=== PATIENT | female | born 1945 | race Caucasian/White ===

== ENCOUNTER 2019-11-13 12:46 | Emergency (ER) | payer MEDICARE, BC, SELFPAY ==
[2019-11-13 12:48] VITALS: BP 163/88; PULSE 74; RESP 18; TEMP 36.7; O2SAT 96; BMI 35.4
--- NOTE | 2019-11-13 12:56 | XR_ITS ---
WS: [id number] Left arm and humerus, 2 views, 11/13/2019 Clinical Data: fall pain Comparison: None. Findings: There is a comminuted fracture of the neck of the left humerus. The shaft of the humerus is medially displaced. The humeral head is approximately within the glenoid fossa. The AC joint is normal. The ad jacent soft tissues show swelling at the fracture site. There is a monitor lead on the shoulder. XR/[place] [id number] Impression: Comminuted fracture involving the left humeral head and junction of the humeral head and humeral shaft.
--- NOTE | 2019-11-13 12:57 | W.ED.FALL ---
HPI - Fall General: Chief Complaint: Fall Stated Complaint: L SHOULDER DISLOCATION/FRACTURE Time Seen by Provider: 11/13/19 12:55 History of Present Illness: HPI Narrative: 74-year-old female comes in after a fall via EMS. Complaining of severe R arm pain. No head injury, no LOC. She denies any other injuries. She slipped and fell at a store. She is having spasm-like pain in the left upper arm. MD complaint: fall Onset (ago): minute(s) Fall from: standing Fall witnessed: yes, by bystander Place fall occurred: other (Local business) Loss of consciousness: None Prolonged down time: no Symptoms prior to fall: none Context: tripped/slipped Location of injury - extremities: Left: arm Severity: severe Quality: sharp Associated symptoms-after fall: Denies abdominal pain, chest pain, confusion, difficulty walking, headache(s), hematuria, lightheadedness, neck pain, numbness, short of breath, vertigo or weakness Review of Systems Const: Denies: fever(s), chills, body aches, change in appetite, fatigue or malaise ENMT: Denies: throat pain, ear or mastoid pain, nasal discharge or nasal congestion Card: Denies: chest pain or lightheadedness Resp: Denies: dyspnea, productive cough or non-productive cough GI: Denies: abdominal pain : Denies: hematuria Musc: Denies: neck pain Skin/Breast: Denies: rash or pruritus Neuro: Denies: headache(s), difficulty walking, vertigo or confusion Physical Exam Const: COMMON NORMALS: no acute distress GENERAL APPEARANCE: cooperative and comfortable ORIENTATION/CONSCIOUSNESS: Yes awake, Yes oriented to person, Yes oriented to place and Yes oriented to time HENMT: COMMON NORMALS: normocephalic, atraumatic and hearing grossly normal bilaterally HEAD & SCALP: normocephalic and atraumatic Eye: COMMON NORMALS: Equal, round and reactive pupils present, EOMs intact bilaterally, conjunctivae normal and no scleral icterus CONJUNCTIVA: Yes conjunctivae normal PUPIL: Yes Equal, round and reactive pupils present Neck/C-Spine: COMMON NORMALS: full ROM, no lymphadenopathy, supple and no JVD Resp: COMMON NORMALS: normal respiratory effort, No retractions, No use of accessory muscles and clear to auscultation bilaterally AUSCULTATION: clear to auscultation bilaterally Cardio: COMMON NORMALS: no JVD, regular rate, regular rhythm and No murmurs present (Cardio) RATE: regular rate RHYTHM: regular rhythm GI: COMMON NORMALS: Soft to palpation and No hepatosplenomegaly present AUSCULTATION: Yes normoactive bowel sounds PALPATION: Yes Soft to palpation, No Tenderness to palpation present (GI), No Guarding due to palpation present (GI) and Yes No hepatosplenomegaly present Extremity: NARRATIVE EXTREMITY EXAM: Obvious deformity and severe pain of the left upper humerus proximal. Neurovascularly intact distally. X-ray confirms clinical suspicion of fracture Neuro: SENSORIUM/ORIENTATION: Yes oriented to person, Yes oriented to place and Yes oriented to time Skin: COMMON NORMALS: no rashes or lesions noted GENERAL SKIN EXAM: no rashes or lesions noted Course Vital Signs: Vital signs: Vital Signs Temperature 98.0 F 11/13/19 12:48 Pulse Rate 70 11/13/19 13:45 Respiratory Rate 18 11/13/19 13:45 Blood Pressure 144/80 11/13/19 13:45 Pulse Oximetry 97 11/13/19 13:45 MDM - Fall MDM Narrative: Medical decision making narrative: X-ray confirms proximal humerus fracture with displacement. We will go ahead and discharge patient home with sling and pain medications referral to Ortho and follow-up. Lab Data: Labs: Lab Results 11/13/19 11/13/19 Range/Units 12:29 12:29 WBC 6.6 (4.0-10.0) 10^3/ uL RBC 4.91 (4.1-5.3) 10^6/u L Hgb 14.9 (11.5-15.3) g/dL Hct 45.3 (37.0-47.0) % MCV 92.3 (81-99) fL MCH 30.3 (28.0-34.0) pg MCHC 32.9 (30.0-36.0) g/dL RDW 13.0 (12.1-15.1) % Plt Count 224 (130-400) 10^3/c mm MPV 10.0 (7.4-10.4) fL Neut % (Auto) 47.8 % Lymph % (Auto) 39.5 % [place] % (Auto) 10.9 % Eos % (Auto) 0.6 % Baso % (Auto) 0.9 % Neut # (Auto) 3.15 (1.8-7.7) 10^3/u L Lymph # (Auto) 2.6 (0.8-4.8) 10^3/u L [place] # (Auto) 0.7 (0.2-0.9) 10^3/u L Eos # (Auto) 0.0 (0.0-0.8) 10^3/u L Baso # (Auto) 0.1 (0.0-0.1) 10^3/u L Nucleated RBC % (a uto) 0 % Nucleated RBCs # 0.0 /100WBC Sodium 130 L (136-145) mmol/L Potassium 3.9 (3.5-5.1) mmol/L Chloride 95 L (98-107) mmol/L Carbon Dioxide 22 (22-29) mmol/L Anion Gap 16.9 (5-19) BUN 10 (8-23) mg/dL Creatinine 0.6 (0.5-0.9) mg/dL GFR Calculation Not Reportable Glucose 94 (65-115) mg/dL Calculated Osmolal ity 269 L (285-295) mOsm/k g Calcium 8.7 (8.5-10.5) mg/dL Total Bilirubin 0.7 (0.15-1.2) mg/dL AST 27 (0-32) U/L ALT 17 (0-33) U/L Alkaline Phosphata se 86 (35-105) IU/L Total Protein 7.0 (6.6-8.7) g/dL Albumin 4.5 (3.5-5.2) g/dL Globulin 2.5 (1.3-4.6) g/dL Discharge Plan Discharge Patient Disposition: Home Clinical Impression: Fracture of proximal end of left humerus Condition: Stable Prescriptions: New hydrocodone-acetaminophen 5-325 mg tablet 1 tab PO Q6H PRN (Reason: pain) Qty: 20 RF: 0 Discharge Orders: Discharge Order (Routine); Ordered 11/13/19 Ordered By: Michael Campbell Referrals: Mino Richter MD [Primary Care Provider] - Discharge Diet: Usual diet Discharge Activity: Limit activity as instructed Activity Restrictions/Additional Instructions: Case management will call with an appointment for orthopedics. Discharge Date/Time: 11/13/19 13:47 Coding Level of Care Code ED Clinical Business Manager for Chg Fwd Exam Comprehensive
[2019-11-13 13:05] VITALS: BP 163/88; PULSE 75; RESP 16; O2SAT 94
--- NOTE | 2019-11-13 13:05 | PC.NURSE ---
XR performed at bedside.
[2019-11-13 13:08] VITALS: O2SAT 96
[2019-11-13 13:31] LABS: Basophils # 0.1 10^3/uL (0.0-0.1); Basophils % 0.9 %; Eosinophils % 0.6 %; Hematocrit 45.3 % (37.0-47.0); Hemoglobin 14.9 g/dL (11.5-15.3); Lymphocytes # 2.6 10^3/uL (0.8-4.8); Lymphocytes % 39.5 %; Mean Corpuscular HGB Conc 32.9 g/dL (30.0-36.0); Mean Corpuscular Hemoglobin 30.3 pg (28.0-34.0); Mean Corpuscular Volume 92.3 fL (81-99); Monocytes # 0.7 10^3/uL (0.2-0.9); Monocytes % 10.9 %; Neutrophils # 3.15 10^3/uL (1.8-7.7); Neutrophils % 47.8 %; Nucleated Red Blood Cells % 0 %; Platelet Count 224 10^3/cmm (130-400); Red Blood Count 4.91 10^6/uL (4.1-5.3); White Blood Count 6.6 10^3/uL (4.0-10.0)
[2019-11-13 13:45] VITALS: BP 144/80; PULSE 70; RESP 18; O2SAT 97
[2019-11-13 13:53] LABS: Alanine Aminotransferase 17 U/L (0-33); Albumin Level 4.5 g/dL (3.5-5.2); Alkaline Phosphatase 86 IU/L (35-105); Anion Gap 16.9 (5-19); Aspartate Amino Transferase 27 U/L (0-32); Blood Urea Nitrogen 10 mg/dL (8-23); Calcium 8.7 mg/dL (8.5-10.5); Carbon Dioxide 22 mmol/L (22-29); Chloride 95 mmol/L (98-107); Globulin 2.5 g/dL (1.3-4.6); Glucose 94 mg/dL (65-115); Osmolality Calculated 269 mOsm/kg (285-295); Potassium 3.9 mmol/L (3.5-5.1); Sodium 130 mmol/L (136-145); Total Bilirubin 0.7 mg/dL (0.15-1.2)
--- NOTE | 2019-11-13 15:35 | DCPLANNER ---
clothing manager had message to schedule a follow up appointment for patient with ortho. clothing manager called the ortho clinic, spoke with Tanya, gave clinic patients information. clothing manager was told that patients information would be printed and reviewed. Clinic will call patient with appointment information.
--- NOTE | 2019-11-16 09:02 | DCPLANNER ---
quality systems manager had message to schedule a follow up appointment for patient with ortho. quality systems manager called the ortho clinic, spoke with Tanya, gave clinic patients information. quality systems manager was told that patients information would be printed and reviewed. Clinic will call patient with appointment information.
--- NOTE | 2019-11-17 07:48 | DCPLANNER ---
Patient had a follow up appointment scheduled for 11.16.19 with ortho - pt attended appointment.
== END 2019-11-13 13:47 | disposition home or self-care (01) ==
PROVIDERS: Emergency Provider Family Medicine; PCP Family Medicine
DX: S42.202A Unspecified fracture of upper end of left humerus, initial encounter for closed fracture (principal); W01.0XXA Fall on same level from slipping, tripping and stumbling without subsequent striking against object, initial encounter; Y92.512 Supermarket, store or market as the place of occurrence of the external cause
CPT/HCPCS: 12345; 73060; 80053; 85025; 99282; 99283

== ENCOUNTER → 2019-11-16 15:02 | Outpatient (BNVA) | payer MEDICARE, BC, SELFPAY | PROVIDERS: PCP Family Medicine; Visit Provider Orthopaedic Surgery | DX: Z11.59 Encounter for screening for other viral diseases (principal) | CPT/HCPCS: 87635 ==

== ENCOUNTER 2019-11-18 06:35 | Day surgery (SDC) | payer MEDICARE, BC, SELFPAY ==
[2019-11-17 13:03] VITALS: BMI 35.4
[2019-11-18] VITALS (9 sets, daily range): BP systolic 122–184; BP diastolic 62–98; PULSE 61–94; RESP 14–20; TEMP 36.1–36.8; O2SAT 94–99; BMI 35.4
--- NOTE | 2019-11-18 | XR_ITS ---
WS: [id number] C-ARM RADIOGRAPHS LEFT SHOULDER; 3 IMAGES HISTORY: OR PICS COMPARISON: 11/13/2019 Intraoperative plate and screw fixation proximal humeral fracture. Fracture now in good position and alignment. XR/XR shoulder LT min 2V* [id number] IMPRESSION: Intraoperative imaging during plate and screw fixation proximal LEFT humerus.
--- NOTE | 2019-11-18 | SCC_ITS ---
Procedure Done: Open reduction and internal fixation left proximal humerus 49.5 seconds of fluoroscopic guidance, for a cumulative dose of 3.99 mGy, was provided to Dr. Mistry by the radiology department. C-arm images of the LEFT shoulder were saved for the patient's permanent record. [facility]
--- NOTE | 2019-11-18 07:22 | ECG_ITS ---
[facility] Test Date: 2019-11-18 Pat Name: Lauren Fisher Department: Room: Gender: Female Stonemason: : 1945 Requested By: Yesy Westfall Order Number: [id number] Yady MD: Reema Leach M.D. Measurements Intervals Faber Rate: 72 P: 40 RI: 226 QRS: 8 QRSD: 102 T: 9 QT: 385 QTc: 423 Interpretive Statements SINUS RHYTHM WITH FIRST DEGREE AV BLOCK ANTERIOR MYOCARDIAL INFARCTION [40+ ms Q WAVE AND/OR ST/T ABNORMALITY IN V3/V4], PROBABLY OLD INFERIOR MYOCARDIAL INFARCTION [40+ ms Q WAVE AND/OR ST/T ABNORMALITY IN II/aVF], PROBABLY OLD Compared to ECG 03/21/2018 18:46:35 First degree AV block now present Myocardial infarct finding still present Electronically Signed On 11-18-2019 18:37:31 CDT by Reema Leach M.D. [id number]
[2019-11-18] MEDS: sodium chloride 0.9% 1,000 ML 30 ML IV (07:24)
--- NOTE | 2019-11-18 07:36 | ANES.PREANE2 ---
Pre-Anesthetic Assessment Pre-Anesthetic Assessment: Height/Weight: Height 1.6 m Weight 90.718 kg Temp Pulse Resp BP Pulse Ox 98.3 F 80 18 184/98 95 11/18/19 07:06 11/18/19 07:06 11/18/19 07:06 11/18/19 07:06 11/18/19 07:06 Preop Diagnosis: Left proximal humerus fracture Proposed Procedure: Operation Date: 11/18/19 08:35 Proposed Procedures p ORIF Proximal Humerus 46115 S42.202A(Left) - Ryan Mistry MD Familial anesthetic complications: PONV - had scop patch last time Was Beta Johnny taken within 24 hours: Yes Last intake: Intake NPO > 8 hrs Last Liquid Date 11/18/19 Last Liquid Time 20:00 Last Solid Date 11/17/19 Last Solid Time 20:00 Social: Social History: No alcohol and No tobacco Exam: Pre-Anes Outpt Exam: alert, oriented x 3, clear to auscultation bilaterally and regular rate & rhythm Airway: Cervical ROM: WNL MP: 3 Dentition: Other (missing, poor dentition) CV/HEM: CV/HEM: CAD (2 stents 2006) and HTN Metabolic: Metabolic: Hyperlipidemia and Thyroid Anesthetic Plan: ASA status: 2 Anesthesia: General and Regional (specify below) Risk of > 500 ml blood loss (7ml/kg in children): No Meds/Allergies Current Medications: Current Medications Generic Name Dose Route Start Last Admin Trade Name Freq PRN Reason Stop Dose Admin Sodium Chloride 1,000 mls @ 30 ml s/hr 11/18/19 07:00 11/18/19 07:24 Sodium Chloride 0.9% IV 11/19/19 06:59 30 mls/hr .Q24H ANISH Administration Data Anesthesia Cardiac Studies: No Data to Display
[2019-11-18] MEDS: scopolamine 1.5 Patch 1 PATCH TRANSDERMA (07:42)
--- NOTE | 2019-11-18 07:56 | ANES.PROC ---
Anesthesia Procedures Procedure/Date: 11/18/19 Nerve Block ^: Nerve Block 1: Main Anesthesia: general anesthesia Time Out Performed: Yes Consent: requested by attending/covering physician, from patient, risks and benefits reviewed and patient agrees to proceed Nerve block location: interscalene (L) Anesthesia monitors applied: pulse oximetry, EKG, BP cuff and oxygen Anesthetic Used: ropivicaine 0.5% and with decadron (4 mg) Amount of anesthesia used (mL): 25 Ultrasound used to: recognize landmarks and visualize and ID interscalene groove Nerve Stimulator Used?: No Interscalene/Femoral BLK: 2 stimuplex 22 g needle used for position and inplane approach, visualize local anesthetic spread and no vascular puncture identified Injection: neg aspiration of heme and paresthesia +/- (-) Patient Tolerated Procedure: well Complications: none
[2019-11-18] MEDS: fentaNYL 50 mcg/mL INJ 2mL IVP (08:01)
--- NOTE | 2019-11-18 09:24 | W.PM.OPSUD ---
Surgery/Procedure H&P Update DATE OF PROCEDURE: November 18, 2019 DATE H&P PERFORMED: 11/16/19 PREOP DIAGNOSIS: Left proximal humerus fracture PLANNED PROCEDURE: Operation Date: 11/18/19 08:35 Proposed Procedures p ORIF Proximal Humerus 41802 S42.(Left) - Ryan Mistry MD
--- NOTE | 2019-11-18 11:38 | PM.OP ---
Operative Report Date of procedure: November 18, 2019 Pre-op Diagnosis: Left proximal humerus fracture Post-op diagnosis: same Post-op Findings: Same Procedure Done: Open reduction and internal fixation left proximal humerus Implants: Jenners Variax short proximal humeral plate Pathology: none sent Anesthesia: General Estimated blood loss (mL): 100 Complications: None Findings: The patient had a displaced fracture of the left surgical neck. She had osteopenia consistent with her age Condition: stable Disposition: PACU Brief History: The patient is a 74-year-old female who fell with a displaced left surgical neck fracture. Due to the degree of displacement and her desire to retain better function in the left arm surgical stabilization was chosen. Procedure: The patient was taken to the operating room after she was given an interscalene block. She was positioned on the fracture table with the left arm exposed. She was given 2 g of Ancef and positioned in the beachchair position. She was prepped and draped in the usual fashion. A timeout was performed. A 8 cm long deltopectoral incision was made with a scalpel dissection carried down through the deltopectoral interval. This brought us down to the shaft fragment was displaced medially and anteriorly. A Hohmann retractor was placed posterior and a superior to the humeral head internally rotating the humeral head and the shaft could be brought down in alignment with the head. Release of the proximal 1 cm of the pectoralis major tendon was identified. The biceps tendon was identified lacerated in the fracture site could not serve as a guide but it could I identify the distal bicipital groove and we could aligned this what was felt to be the proximal bicipital groove. The short Aristeo plate was placed down the lateral femur and fixed with a single screw for the oblong hole as better positioning was accomplished. Maximal locking screws were placed in the humeral head and locking screws were passed through the plate into the shaft. Intraoperative imaging showed satisfactory reduction of the humeral head and adequate position of the hardware. The wound was irrigated with saline. The deltopectoral interval was closed with 0 Vicryl. The subcutaneous tissues were closed with 2-0 Vicryl. The skin was closed with skin migdalia. The patient was placed in a sling, extubated, and taken to recovery room in stable condition.
--- NOTE | 2019-11-18 12:44 | ANE.PACU2 ---
Inpatient post-anesthesia follow up: Airway intact: Yes Vital signs: Temperature 97 F Pulse Rate 62 Respiratory Rate 18 Blood Pressure 146/74 Pulse Oximetry 94 Oxygen Delivery Me thod Room Air Oxygen Flow Rate 8 Fraction of Inspir ed Oxygen Hydration adequate: Yes Nausea and vomiting: No Pain level: 1 Mental status: Baseline Additional Comments: Block still working
== END 2019-11-18 13:05 | disposition home or self-care (01) ==
PROVIDERS: PCP Family Medicine; Visit Provider Orthopaedic Surgery
PROC: (CPT 23615; principal; 2019-11-18 08:35)
DX: S42.202A Unspecified fracture of upper end of left humerus, initial encounter for closed fracture (principal); W19.XXXA Unspecified fall, initial encounter; I25.10 Atherosclerotic heart disease of native coronary artery without angina pectoris; Z95.5 Presence of coronary angioplasty implant and graft; I10 Essential (primary) hypertension; E78.5 Hyperlipidemia, unspecified; Z79.82 Long term (current) use of aspirin
CPT/HCPCS: 23615; 12345; 64415; 73030; 76000; 76942; 93005; 96374; C1713; J0690; J1100; J1580; J2405; J2704; J2795; J3010; J3490; J7030

== ENCOUNTER → 2019-12-29 11:03 | Outpatient (BNVA) | payer MEDICARE, BC, SELFPAY | PROVIDERS: PCP Family Medicine; Visit Provider Orthopaedic Surgery | DX: Z48.89 Encounter for other specified surgical aftercare (principal) | CPT/HCPCS: 73030 ==

== ENCOUNTER 2020-01-05 12:29 | Outpatient (RCR) | payer MEDICARE, BC, SELFPAY | END 2020-01-18 23:59 | disposition home or self-care (01) | LOC: SPT 12:29 | PROVIDERS: PCP Family Medicine; Visit Provider Orthopaedic Surgery | DX: Z47.89 Encounter for other orthopedic aftercare (principal) | CPT/HCPCS: 97110; 97161 ==

== ENCOUNTER 2020-01-19 06:00 | Outpatient (RCR) | payer MEDICARE, BC, SELFPAY | END 2020-02-18 23:59 | disposition home or self-care (01) | LOC: SPT 06:00 | PROVIDERS: PCP Family Medicine; Visit Provider Orthopaedic Surgery | DX: Z47.89 Encounter for other orthopedic aftercare (principal) | CPT/HCPCS: 97110 ==

== ENCOUNTER → 2020-01-26 11:38 | Outpatient (BNVA) | payer MEDICARE, BC, SELFPAY | PROVIDERS: PCP Family Medicine; Visit Provider Orthopaedic Surgery | DX: Z47.89 Encounter for other orthopedic aftercare (principal); S42.202D Unspecified fracture of upper end of left humerus, subsequent encounter for fracture with routine healing; W18.30XD Fall on same level, unspecified, subsequent encounter | CPT/HCPCS: 73030 ==

== ENCOUNTER 2020-02-19 06:00 | Outpatient (RCR) | payer MEDICARE, BC, SELFPAY | END 2020-03-20 23:59 | disposition home or self-care (01) | LOC: SPT 06:00 | PROVIDERS: PCP Family Medicine; Visit Provider Orthopaedic Surgery | DX: Z47.89 Encounter for other orthopedic aftercare (principal) | CPT/HCPCS: 97110 ==

== ENCOUNTER → 2020-02-23 13:19 | Outpatient (BNVA) | payer MEDICARE, BC, SELFPAY | PROVIDERS: PCP Family Medicine; Visit Provider Orthopaedic Surgery | DX: Z48.89 Encounter for other specified surgical aftercare (principal); S42.202A Unspecified fracture of upper end of left humerus, initial encounter for closed fracture | CPT/HCPCS: 73030 ==

== ENCOUNTER 2023-08-19 03:05 | Emergency (ER) | payer MEDICARE, OTHER, SELFPAY ==
[2023-08-19 03:06] VITALS: BP 182/112; PULSE 110; RESP 16; TEMP 36.6; O2SAT 96; BMI 29.2
--- NOTE | 2023-08-19 03:33 | W.ED.EXTPRO ---
HPI - Extremity Problem General: Chief complaint: Extremity Injury, Lower Stated complaint: bleeding heel Time Seen by Provider: 08/19/23 03:11 Source: patient and EMS Mode of arrival: EMS Limitations: no limitations History of Present Illness: 77-year-old female who presents with EMS for bleeding from the right heel. Patient had dressing placed by EMS and the bleeding is since stopped. States she had bleeding like this before she denies any fever denies any pain she is not on any blood thinners Associated symptoms: Deny chest pain, fever(s) or rash Review of Systems Const: Denies: fever(s), chills, body aches or change in appetite Eyes: Denies: blurry vision or eye discomfort ENMT: Denies: throat pain or dental pain Card: Denies: chest pain Resp: Denies: dyspnea GI: Denies: abdominal pain, nausea, vomiting or diarrhea : Denies: dysuria Musc: Denies: neck pain or back pain Skin/Breast: Denies: rash Neuro: Denies: headache(s) Physical Exam Const: COMMON NORMALS: no acute distress, patient oriented x3 and healthy appearing HENMT: COMMON NORMALS: normocephalic and atraumatic HEAD & SCALP: normocephalic and atraumatic Neck/C-Spine: COMMON NORMALS: full ROM and supple Chest: COMMONS NORMALS: normal inspection of the chest Resp: COMMON NORMALS: normal respiratory effort Cardio: COMMON NORMALS: regular rate, regular rhythm and No murmurs present (Cardio) RATE: regular rate RHYTHM: regular rhythm Extremity: NARRATIVE EXTREMITY EXAM: Dermatitis dry skin to right foot with varicose veins no bleeding at all at this time Neuro: COMMON NORMALS: patient oriented x3, moves all extremities and no focal motor deficits Psych: COMMON NORMALS: mental status grossly normal, Normal thought process present and cooperative THOUGHT PROCESS: Normal thought process present Skin: COMMON NORMALS: no rashes or lesions noted and no wounds GENERAL SKIN EXAM: no rashes or lesions noted Course Vital Signs: Vital signs: Vital Signs Temperature 97.8 F 08/19/23 03:06 Pulse Rate 110 H 08/19/23 03:06 Respiratory Rate 16 08/19/23 03:06 Blood Pressure 182/112 08/19/23 03:06 Pulse Oximetry 96 08/19/23 03:06 Oxygen Delivery Me thod Room Air 08/19/23 03:06 MDM - Extremity (Nontraumatic) Medical Decision Making Patient presented here with bleeding from right heel since stopped she refused any blood draw to check her hemoglobin she had some tachycardia here she refused her EKG she states she just wants to go home she is stable has no bleeding at this time stable for discharge. No radiology studies performed this visit Discharge Plan Discharge Patient Disposition: Home Clinical Impression: Dermatitis of right foot, Varicose veins of foot Condition: Stable Prescriptions: No Action levothyroxine [Euthyrox] 88 mcg tablet 88 mcg PO DAILY lisinopril 40 mg tablet 40 mg PO DAILY metoprolol succinate 50 mg tablet extended release 24 hr 50 mg PO DAILY amlodipine 2.5 mg tablet 2.5 mg PO DAILY aspirin [Adult Aspirin Regimen] 81 mg tablet,delayed release (DR/EC) 81 mg PO DAILY pravastatin 20 mg tablet 20 mg PO DAILY Algal [place]-3 DHA 200 mg capsule 200 mg PO DAILY hydrocodone-acetaminophen [[place]] 5-325 mg tablet 1 tab PO Q4H PRN (Reason: pain) 7 Days Qty: 30 0RF hydrocodone-acetaminophen 5-325 mg tablet 1 tab PO Q4H Qty: 30 0RF hydrocodone-acetaminophen 5-325 mg tablet 1 tab PO Q6H PRN (Reason: pain) Qty: 20 0RF Discharge Orders: Discharge ED (Routine); Ordered 08/19/23 Ordered By: Nik Chavez Referrals: Mino Richter MD [Primary Care Provider] - Discharge Diet: Advance as tolerated Discharge Activity: Resume usual activity Patient Instructions: Foot Care, Varicose Veins Coding Level of Care Code ED Food Service Director for Urmila Pierce
[2023-08-19] MEDS: labetalol 5 mg/mL SDV 20mL 10 MG IVP (03:35)
--- NOTE | 2023-08-19 03:45 | PC.NURSE ---
Patient refused labetalol as well as EKG, stating that she doesn't know for sure if she's allergic to possible meds or EKG stickers.
--- NOTE | 2023-08-19 03:46 | PC.NURSE ---
Sister in law Tawanna Fisher contacted to pickup patient for discharge. Tawanna states that she would come pickup patient.
== END 2023-08-19 04:43 | disposition home or self-care (01) ==
PROVIDERS: Emergency Provider Emergency Medicine; PCP Family Medicine
DX: I86.8 Varicose veins of other specified sites (principal); L30.9 Dermatitis, unspecified; Z79.82 Long term (current) use of aspirin
CPT/HCPCS: 96374; 99284; J3490

== ENCOUNTER 2024-08-14 09:04 | Emergency (ER) | payer MEDICARE, SELFPAY ==
--- OUTSIDE RECORDS SUMMARY | 2024-08-14 09:13 | XMS_ITS | Clinical Summary ---
[facility] [address] [place] [address] Phone Care Team Providers Care Clinical Aide Name Role Phone Mino Richter MD Primary Care Provider [phone] Allergies Active Allergy Reactions Criticality Noted Date Comments Amoxicillin Rash Low 03/22/2018 Medications pravastatin (PRAVACHOL) 20 mg tablet Take 20 mg by mouth daily with supper. Active metoprolol tartrate (LOPRESSOR) 50 mg tablet Take 50 mg by mouth 2 times daily. Active lisinopril (PRINIVIL) 40 mg tablet Take 40 mg by mouth daily. Active amLODIPine (NORVASC) 2.5 mg tablet Take 2.5 mg by mouth daily. Active omega-3 fatty acids-fish oil 300-1,000 mg Capsule Take by mouth daily. Active levothyroxine 88 mcg tablet Take 1 Tablet (88 mcg) by mouth daily book retailer. 30 Tablet 9 Active aspirin (WADE CHEWABLE) 81 mg Tablet, Chewable Take 81 mg by mouth daily. 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 Benign hypertension 03/22/2018 Personal history of FIGO Sta ge IB Adenocarcinoma of endometrium Cancer Staging:Pathologic:FIGO Stage IB- Signed by Omayra Cooper APRN-CNP on 04/27/2018 Humerus fracture Overview (01/06/2020): left Resolved Problems Problem Noted Date Diagnosed Date Resolved Date Endometrial thickening on ultrasound 03/24/2018 04/30/2018 Acute blood loss anemia 03/23/201803/22 Vaginal bleeding 03/22/2018 04/30/2018 Hyponatremia 03/22/2018 03/24/2018 Family History Medical History Relation Name Comments Diabetes Brother 1 Heart Disease Brother 1 Heart Disease Father Seizures Father Stroke Father Diabetes Mother Heart Disease Mother Breast Cancer Neg Hx Colon Cancer Neg Hx Ovarian Cancer Neg Hx Relation Name Status Comments Brother 1 Alive Brother 2 Alive Brother 3 Father Mother Sister 1 Alive Sister 2 Alive Sister 3 Sister 4 Social History Tobacco Use Types Packs/Day Years Used Date Smoking Tobacco: Never Smokeless Tobacco: Never Alcohol Use Standard Drinks/Week Comments No 0 (1 standard drink = 0.6 oz pur e alcohol) Comments No Sex and Gender Information Value Date Recorded Sex Assigned at Not on file Legal Sex Female 11:29 AM [employer] Gender Identity Not on file Sexual Orientation Not on file Last Filed Vital Signs Vital Sign Reading Time Taken Comments Blood Pressure 174/88 05/31/2020 1:04 PM CDT man ual Pulse 78 05/31/2020 12:58 PM CDT Temperature 36.6 C (97.8 F) 05/31/2020 12:58 PM CDT Respiratory Rate 16 07/16/2018 11:31 AM CDT Oxygen Saturation 96% 05/31/2020 12:58 PM CDT Inhaled Oxygen Concentration - - Weight 90 kg (198 lb 6.4 oz) 05/31/2020 12:58 PM CDT Height 160 cm (5' 3 ) 05/31/2020 12:58 PM CDT Body Mass Index 35.14 05/31/2020 12:58 PM CDT Plan of Treatment Health Maintenance Due Date Last Done Comments DTAP/TDAP/TD VACCINES (1 - Tdap) 11/03/1962 PNEUMOCOCCAL VACCINE 50+ YEARS (1 of 1 - PCV) 11/03/18 94 ZOSTER VACCINE (1 of 2) 11/03/1993 OSTEOPOROSIS SCREENING 11/03/2008 RSV VACCINE (60+ or ) (1 - 1-dose 75+ series) 11/03/2018 INFLUENZA VACCINE (#1) 2023 Medical Devices Implanted Type Area Flake Drier Device Identifier Shelf Expiration Date Model / Serial / Lot Hemostatic Surgiflo 8ml W/Thrombin 2994 - [id number] Implanted:Qty: 1 on 04/17/2018 by Ynes Allen DO at [facility] N/A: Abdomen [employer] 08/18/2019 [id number] / / [id number] Insurance MEDICARE PART A AND B [facility] RX [email or web address] Medicare Part D Advance Directives For more information, please contact: [phone] Documents on File Type Date Recorded Patient Regional Sales Consultant Expl anation Advance Directive POA 04/17/2018 8:35 AM A dvance Directive POA Advance Directive Living Will 04/17/2018 8:35 AM Advance Directive Living Will * Full Code (Latest Code Status on File) Date Activated Date Inactivated Comments 04/17/2018 5:50 PM 04/18/2018 6:34 PM * Full Code Date Activated Date Inactivated Comments 04/17/2018 12:49 PM 04/17/2018 4:33 PM * Full Code Date Activated Date Inactivated Comments 04/17/2018 8:39 AM 04/17/2018 12:49 PM * Full Code Date Activated Date Inactivated Comments 03/22/2018 8:40 AM 03/23/2018 4:52 PM Care Teams Clinical Aide Relationship Specialty Start Date End Date Mino Richter MD [address] [phone] PCP - General Family Practice 03/24/18
--- OUTSIDE RECORDS SUMMARY | 2024-08-14 09:13 | XMS_ITS | Encounter Summary ---
Author Organization [facility] Address [address] [place] [address] Care Team Providers Care Product Distribution Specialist Name Role Phone Mino Richter MD Primary Care Provider [phone] Encounter Details Date Type Department Care Team (Late st Contact Info) Description 08/11/2024 External Device Data [facility] ABSTRACTION Provider, Abstract NO ADDRESS ON FILE Social History Tobacco Use Types Packs/Day Years Used Date Smoking Tobacco: Never Smokeless Tobacco: Never Alcohol Use Standard Drinks/Week Comments No 0 (1 standard drink = 0.6 oz pur e alcohol) Feeling Safe Answer Date Recorded Are you in a relationship wi th someone who hurts you emotionally and/or physically? 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
--- OUTSIDE RECORDS SUMMARY | 2024-08-14 09:13 | XMS_ITS ---
Author Organization Unknown TREATMENT PLAN Planned [facility] Start Date Provider Encounter for Check-up [id number] Robby salazar [facility]
--- OUTSIDE RECORDS SUMMARY | 2024-08-14 09:13 | XMS_ITS | Encounter Summary ---
Author Organization [facility] Address [address] [place] [address] Care Team Providers Care Military Administrative Technician Name Role Phone Mino Richter MD Primary Care Provider [phone] Reason for Referral * CT Scan (Routine) - Closed Specialty Diagnoses / Procedures Referred By Contac t Referred To Contact Diagnoses Malignant neoplasm of endometrium (CMS/HCC) Procedures CT GUIDED RAD THERAPY FIELD Mariajose Carey MD [address] [place] [address] Phone: tel: fax: [facility] Pre-Registration [place] CALL TO MAKE APPOINTMENT ONLY [address] [place] [address] Phone: tel: fax: Referral ID Status Reason Start Date Expiration Date Visits Re quested Visits Authorized [id number] Closed 06/03/2018 07/04/2019 1 1 Encounter Details Date Type Department Care Team (Late st Contact Info) Description 06/03/2018 Ancillary Orders [facility] [address] [address] Mariajose Carey MD [address] [place] [address] Malignant neoplasm of endometrium (CMS/HCC) Social History Tobacco Use Types Packs/Day Years Used Date Smoking Tobacco: Never Smokeless Tobacco: Never Alcohol Use Standard Drinks/Week Comments No 0 (1 standard drink = 0.6 oz pur e alcohol) Comments No Sex and Gender Information Value Date Recorded Sex Assigned at Not on file 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 Exam was auto-finalized. 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
--- OUTSIDE RECORDS SUMMARY | 2024-08-14 09:13 | XMS_ITS ---
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 Past Treatment and Therapy Plans No past plan information found. Lifetime Dose Tracking * Chemical Lifetime Dose Automatic Entry Manual Entr y Effective Dose 15.1 mSv 0 mSv 15.1 mSv Total DLP 855 DLP 0 DLP 855 DLP CTDIvol Max 12.9 mGy 0 mGy 12.9 mGy CTDIvol Min 10.1 mGy 0 mGy 10.1 mGy Resolved Problems Problem Noted Date Diagnosed Date Resolved Date Venous stasis dermatitis of right lower extremity 01/30/2023 04/24/2023 Endometrial thickening on ultrasound 03/24/2018 04/30/2018 Acute blood loss anemia 03/23/201803/22 Vaginal bleeding 03/22/2018 04/30/2018 Hyponatremia 03/22/2018 03/24/2018
--- OUTSIDE RECORDS SUMMARY | 2024-08-14 09:13 | XMS_ITS | Encounter Summary ---
Author Organization [facility] Address [address] [place] [address] Care Team Providers Care Quality Control Industrial Engineer Name Role Phone Mino Richter MD Primary Care Provider [phone] Reason for Referral * CT Scan (Routine) - Closed Specialty Diagnoses / Procedures Referred By Contac t Referred To Contact Radiation Oncology Diagnoses Malignant neoplasm of endometrium (CMS/HCC) Procedures CT GUIDED RAD THERAPY [facility] Mariajose Carey MD [address] [place] [address] Phone: tel: fax: [facility] [address] [address] Phone: tel: fax: Referral ID Status Reason Start Date Expiration Date Visits Re quested Visits Authorized [id number] Closed 06/04/2018 07/05/2019 1 1 * CT Scan (Routine) - Closed Specialty Diagnoses / Procedures Referred By Contac t Referred To Contact Diagnoses Malignant neoplasm of endometrium (CMS/HCC) Procedures CT GUIDED RAD THERAPY [facility] Mariajose Carey MD [address] [place] [address] Phone: tel: fax: [facility] Pre-Registration [place] CALL TO MAKE APPOINTMENT ONLY [address] [place] [address] Phone: tel: fax: Referral ID Status Reason Start Date Expiration Date Visits Re quested Visits Authorized [id number] Closed 06/04/2018 07/05/2019 1 1 * CT Scan (Routine) - Closed Specialty Diagnoses / Procedures Referred By Contac t Referred To Contact Diagnoses Malignant neoplasm of endometrium (CMS/HCC) Procedures CT GUIDED RAD THERAPY FIELD Mariajose Carey MD [address] [place] [address] Phone: tel: fax: [facility] Pre-Registration [place] CALL TO MAKE APPOINTMENT ONLY [address] [place] [address] Phone: tel: fax: Referral ID Status Reason Start Date Expiration Date Visits Re quested Visits Authorized [id number] Closed 06/04/2018 07/05/2019 1 1 Encounter Details Date Type Department Care Team (Late st Contact Info) Description 06/04/2018 Ancillary Orders [facility] [address] [address] Mariajose Carey MD [address] [place] [address] Malignant neoplasm of endometrium (CMS/HCC) Social History Tobacco Use Types Packs/Day Years Used Date Smoking Tobacco: Never Smokeless Tobacco: Never Alcohol Use Standard Drinks/Week Comments No 0 (1 standard drink = 0.6 oz pur e alcohol) Comments No Sex and Gender Information Value Date Recorded Sex Assigned at Not on file 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 Gender Identity Not on file Sexual Orientation Not on file documented as of this encounter Plan of Treatment Scheduled Orders Name Type Priority Associated Diagnoses Orde r Schedule CT GUIDED RAD THERAPY FIELD Imaging Routine Malignant neoplasm of endometrium (CMS/HCC) 1 Occurrences starting 06/04/2018 until 06/05/2019 CT GUIDED RAD THERAPY FIELD Imaging Routine Malignant neoplasm of endometrium (CMS/HCC) 1 Occurrences starting 06/04/2018 until 06/05/2019 documented as of this encounter Results * CT GUIDED RAD THERAPY FIELD (06/10/2018 3:23 PM CDT) Narrative 06/10/2018 3:24 PM CDT Order information only. Exam was auto-finalized. 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
--- OUTSIDE RECORDS SUMMARY | 2024-08-14 09:13 | XMS_ITS | Clinical Summary ---
Author Organization [facility] de Address [address] [place] [address] Phone Care Team Providers Care Forestry Laborer Name Role Phone Mino Richter MD Primary Care Provider [phone] Allergies Active Allergy Reactions Criticality Noted Date Comments Amoxicillin Rash Low 03/22/2018 Cephalexin Rash Medium 12/13/2022 Medications aspirin (WADE CHEWABLE) 81 mg Tablet, Chewable Take 81 mg by mouth daily. 9 Active amLODIPine (NORVASC) 2.5 mg tablet Take 2.5 mg by mouth daily. Active lisinopriL (PRINIVIL) 40 mg tablet 1 Active metoprolol succinate (TOPROL XL) 50 mg Extended Release 24 hour tablet 1 Active omega-3 fatty acids-fish oil 300-1,000 mg Capsule Take by mouth daily. Active pravastatin (PRAVACHOL) 20 mg tablet 1 Active levothyroxine 88 mcg tablet Take 1 Tablet (88 mcg) by mouth daily orthopaedic nurse. 30 Tablet 0 9 Active Additional Information Patient taking differently: 75 mcgOral DAILY EARLY, Reported on 01/30/2023 ammonium lactate (LAC-HYDRIN) 12 % Cream APPLY FROM FOOT TO KNEE TWICE DAILY EVERY DAY TO BOTH LEGS 3 Active triamcinolone acetonide (KENALOG) 0.5 % OintmentIndicat ions:Venous stasis dermatitis of right lower extremity Apply to affected area 2 times daily. 80 Gram 1 4 Active dimenhyDRINATE (DRAMAMINE) 50 mg Tablet, Chewable Take by mouth. 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- Signed by Omayra Cooper APRN-CNP on 04/27/2018 Humerus fracture Overview (06/17/2020): left Resolved Problems Problem Noted Date Diagnosed Date Resolved Date Venous stasis dermatitis of right lower extremity 01/30/2023 04/24/2023 Endometrial thickening on ultrasound 03/24/2018 04/30/2018 Acute blood loss anemia 03/23/201803/22 Vaginal bleeding 03/22/2018 04/30/2018 Hyponatremia 03/22/2018 03/24/2018 Encounters Date Type Department Care Team Description 08/11/2024 External Device Data [facility] ABSTRACTION Provider, Abstract 07/21/2024 External Device Data [facility] ABSTRACTION Provider, Abstract 07/14/2024 External Device Data [facility] ABSTRACTION Provider, Abstract 07/09/2024 External Device Data [facility] ABSTRACTION Provider, Abstract 07/08/2024 External Device Data [facility] ABSTRACTION Provider, Abstract 07/07/2024 External Device Data [facility] ABSTRACTION Provider, Abstract from Last 3 Months Family History Medical History Relation Name Comments [...] Date Smoking Tobacco: Never Smokeless Tobacco: Never Tobacco Cessation:Counseling Given: Not Answered Alcohol Use Standard Drinks/Week Comments No 0 (1 standard drink = 0.6 oz pur e alcohol) Feeling Safe Answer Date Recorded Are you in a relationship wi th someone who hurts you emotionally and/or physically? 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 Gender Identity Not on file Sexual Orientation Not on file Last Filed Vital Signs Vital Sign Reading Time Taken Comments Blood Pressure 145/60 11/28/2023 2:45 PM CDT Pulse 61 11/28/2023 2:45 PM CDT Temperature 36.9 C (98.5 F) 11/28/2023 2:14 PM CDT Respiratory Rate 18 11/28/2023 2:45 PM CDT Oxygen Saturation 98% 11/28/2023 2:45 PM CDT Inhaled Oxygen Concentration - - Weight 69.9 kg (154 lb) 11/28/2023 12:13 PM CDT Height 157.5 cm (5' 2 ) 11/28/2023 12:13 PM CDT Body Mass Index 28.17 11/28/2023 12:13 PM CDT Plan of Treatment Health Maintenance Due Date Last Done Comments DTAP/TDAP/TD VACCINES (1 - Tdap) 11/03/1962 PNEUMOCOCCAL VACCINE 50+ YEARS (1 of 1 - PCV) 11/03/18 94 ZOSTER VACCINE (1 of 2) 11/03/1993 OSTEOPOROSIS SCREENING 11/03/2008 RSV VACCINE (60+ or ) (1 - 1-dose 75+ series) 11/03/2018 INFLUENZA VACCINE (#1) 2023 Medical Devices Implanted Type Area Erp Technical Lead Device Identifier Shelf Expiration Date Model / Serial / Lot Hemostatic Surgiflo 8ml W/Thrombin 2994 - [id number] Implanted:Qty: 1 on 04/17/2018 by Ynes Allen DO Hemostatic N/A: Abdomen [employer] 08/18/2019 [id number] / / [id number] Insurance MEDICARE PART A AND B [facility] * Guarantor: LAUREN MORENO Account Type Relation to Patient Date of Phone Billing Address Personal/Family [address] [place] [id number] [employer] Medicare Part D Advance Directives For more information, please contact: [phone] Documents on File Type Date Recorded Patient Warehouse Associate Expl anation Advance Directive POA 04/17/2018 8:35 AM A dvance Directive POA Advance Directive Living Will 04/17/2018 8:35 AM Advance Directive Living Will Care Teams Forestry Laborer Relationship Specialty Start Date End Date Mino Richter MD [address] [address] PCP - General Family Practice 03/24/18
--- OUTSIDE RECORDS SUMMARY | 2024-08-14 09:13 | XMS_ITS ---
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 Past Treatment and Therapy Plans No past plan information found. Lifetime Dose Tracking * Chemical Lifetime Dose Automatic Entry Manual Entr y Effective Dose 15.1 mSv 15.1 mSv 0 mSv Total DLP 855 DLP 855 DLP 0 DLP CTDIvol Max 12.9 mGy 12.9 mGy 0 mGy CTDIvol Min 10.1 mGy 10.1 mGy 0 mGy Treatment Summaries Adenocarcinoma of endometrium (CMS/HCC)* Endometrial/Uterine Cancer Survivorship Care Plan Provided by [facility] on 10/22/18 General Information Patient Name: Lauren Fisher Patient : 1945 Care Team Gynecologic Oncologist: Dr. Ynes Allen DO Surgeon: Dr. 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 Modified radical robotic hysterectomy. Robotic bilateral salpingo-oophorectomy. Right sentinel lymph node excision. Bilateral pelvic and periaortic lymph node excision. Cystoscopy 06/10/2018 - 06/17/2018 Radiation RADIATION TREATMENT COURSE: Dates of treatment: 06/10/2018 through 06/17/2018 Elapsed Days: 7 Area of treatment: Vaginal cuff Dose per fraction: 700 cGy to proximal 4cm of vagina to 5mm depth Fraction number: 3 Total Dose: 2100 cGy prescribed to vaginal surface Beam arrangement: HDR brachytherapy with vaginal cylinder Beam Energy: Radioactive source Iridium-192 Cumulative dose: 2100 cGy in 3 fractions delivered to vaginal surface and proximal 4 cm of vagina to 5mm depth Follow Up Care Recommendation 0-24 months 24-36 Months 3-5 Years After 5 Years History & Physical Visit High Risk Every 3 months Every 3 months Every 6 months Yearly* CA-125 With each follow up visit or as indicated With each follow up visit or as indicated With each follow up visit or as indicated With each follow up visit or as indicated Recurrence suspected CT or PET Scan CT or PET Scan CT or PET Scan CT or PET Scan * May be followed by a police worker or gynecologic oncologist Low risk - early stage, treated with surgery alone, no adjuvant therapy High risk - advanced stage, treated with primary chemotherapy/ radiation therapy or surgery plus adjuvant therapy. Resources Provided to Patient Referrals Provided: There are no referrals needs at this time Survivorship Care Genetic counseling referral Tell your doctor if there is a family history of any of the following cancers: breast colon/Vega syndrome ovarian uterine Gynecologic Oncologist Non Cancer Related Preventive care Continue your routine visits to your primary care physician for preventative care. Bone health DEXA every 2 years calcium with vitamin D weight bearing exercise Lung Cancer Screening 55-77 years of age 30 pack per year or more smoking history Current Smoker or smoked within the last 15 years No signs and symptoms of lung cancer Smoked one pack of cigarettes per day for 30 years or two packs a day for 15 years In generally good health Colon cancer screening screening colonoscopy starting at age 45 or as discussed with PCP stool guaiac tests eat fruits and vegetables Heart Health weight management cholesterol management blood sugar control blood pressure control Breast Cancer Screening Mammograms as discussed with your PCP or Women's Oncology Call your doctor if you have any of these signs and symptoms: - Any vaginal bleeding is abnormal, please call office to have evaluated. - Changes in bowel or bladder function/pattern lasting greater than 10-14 days. - A sensation of a mass in the pelvic area. - Abdominal pain, bloating, or distention lasting greater than 10-14 days or not relieved by your pain medications. - Early satiety - Unintentional weight loss greater than 10 pounds over one months time. *Any new, unusual and/or persistent symptoms should be brought to the attention of your provider. Society of Gynecologic Oncology Recommendations Persistent Treatment-Associated Adverse Effects at Completion of Therapy: It is important to recognize that not every woman experiences the following adverse events after treatment. You may not have any of these issues, a few or many adverse effects. Experiences are highlyvariable. Please discuss any adverse effects of cancer treatment with your cancer care team. After SURGICAL THERAPY Menopausal symptoms: Hot flashes, night sweats and vaginal dryness may occur. See your health children's zoo caretaker about non-medication recommendations and medication-based treatment. Hot Flashes Your Care Instructions A hot flash is a sudden feeling of intense body heat. Your head, neck, and chest may get red. Your heartbeat may speed up, and you may feel anxious or irritable. You may find that hot flashes occur more often in warm rooms or during stressful times. Hot flashes and other symptoms are a normal response to the hormone changes that occur as a result of hormonal changes in your body. Hot flashes often get better and go away with time. Making a few changes, such as exercising more, practicing meditation, quitting smoking, avoiding caffiene and drinking less alcohol, can help. Follow-up care is a hamilton part of your treatment and safety. Be sure to make and go to all appointments, and call your doctor if you are having problems. It???s also a good idea to know your test results and keep a list of the medicines you take. How can you care for yourself at home? If you decide to take medicine to treat hot flashes, take it exactly as prescribed. Call your doctor if you think you are having a problem with your medicine. You will get more details on the specific medicine your doctor prescribes. Learn to meditate. Sit quietly and focus on your breathing. Try to practice each day. Books, classes, and tapes can help you start a program. Wear natural fabrics, such as cotton and silk. Dress in layers so you can take off clothes as needed. Keep the room temperature cool or use a fan. You are more likely to have a hot flash when you are too warm than when you are cool. Use fewer blankets when you sleep at night. Drink cold fluids rather than hot ones. Limit your intake of caffeine and alcohol. Eat smaller meals more often during the day so your body makes less heat than when digesting large amounts of food. Eat low-fat and high-fiber foods. Do not smoke. Smoking can make hot flashes worse. If you need help quitting, talk to your doctor about stop-smoking programs and medicines. These can increase your chances of quitting for good. Get at least 30 minutes of exercise on most days of the week. Walking is a good choice. You also may want to do other activities, such as running, swimming, cycling, or playing tennis or team sports. When should you call for help? Watch closely for changes in your health, and be sure to contact your doctor if: Your hot flashes disrupt your activities or sleep. Your symptoms bother you, and they are not getting better. Leg swelling: Minimal to pronounced lower leg swelling can occur. Symptom control with compression hose, lymphedema massage or specialized physical therapy can be ordered. LYMPHEDEMA CONTROL 1. Put your affected leg above the level of your heart 2 or 3 times a day and keep it there for 45 minutes. Lie down to do this, and fully support your leg Place your leg up on pillows so that your foot is higher than your hip. Exercise your affected leg while it is supported above the level of your heart by flexing and pointing your toes 15 to 25 times. Repeat this 3 to 4 times a day. This helpsreduce swelling by pumping lymph fluid out of your leg through the undamaged lymph vessels. Wrapping your leg. Bandages wrapped around your entire limb encourage lymph fluid to flow back out of your affected limb and toward the trunk of your body. When bandaging your leg, start by making the bandage snuggest around your foot and toes. Wrap the bandage more loosely as you move up your leg.([facility] 2012) How to help prevent and control lymphedema At this time, there are no scientific studies to show that people can prevent lymphedema. Still, most experts say following these basic guidelines might lower your risk of lymphedema or delay its onset: Try to avoid infection. Your body responds to infection by sending extra fluid and white blood cells to fight the infection. If lymph nodes and vessels are missing or damaged, it is harder for the body to move this extra fluid, which can trigger lymphedema. Good hygiene and careful skin care may reduce the risk of lymphedema by helping you avoid infections. Follow these tips to help you care for the leg on the side of your body that had surgery: Keep your skin soft and moist by regularly using moisturizing lotion or cream. Push your cuticles back with a cuticle stick rather than cutting them with scissors. Keep your leg clean. Clean and protect any skin breaks caused by cuts, scratches, insect bites, hangnails, or torn cuticles. Wear socks and shoes when gardening or doing yard work. Use an insect repellent to avoid bug bites when outdoors. If you are stung by a bee on the affectedleg, clean and put ice on the area and raise the leg. Keep it clean, and call your doctor or nurse if the sting shows any signs of infection. Avoid extreme cold. As you warm up, it can cause rebound swelling and chapping of your skin, which may lead to infection. Try to avoid johnston and high heat. Like infections, johnston can cause extra fluid to build up and cause swelling when lymph nodes have been removed or damaged. Tips to avoid johnston include: Protect your leg from sunburn. Use sunscreen labeled SPF 15 or higher, and try to stay out of the sun between the hours of 10 a.m. and 4 p.m., when the ultraviolet rays are strongest. Avoid high heat, such as from hot tubs and saunas. Do not use a heating pad on the affected areas. Heat can increase fluid build-up. Try to avoid constriction. Constriction or squeezing of the leg may increase the pressure in nearby blood vessels. This may lead to increased fluid and swelling (much like water building up behind a dam). Lymphedema has also been linked with air travel, possibly because of air pressure changes. Tips include: Wear loose clothing, and socks. Avoid anything that forms a snug band around your leg. On long or frequent airplane flights, wear a compression stocking. Careful fitting is required, since any garment that is too tight near the top can actually reduce the lymph flow. Ask your doctor orphysical therapist if you should be fitted for a stocking to wear during air travel. Try to avoid gaining weight. Extra fat requires more blood vessels. This means more fluid in the legs and places a greater burden on the lymph vessels that are left. Some studies have found that gaining weight after surgery and/or radiation is linked to a higher risk of lymphedema. People who are more overweight (obese) are more likely to have severe lymphedema. [place] [employer], Nov, 2011, accessed at www.cancer.org. Sexual intimacy issues: Vaginal dryness and scarring at the top of the vagina causing discomfort can occur. Use of a lubricant and dilator can help prevent or improve vaginal symptoms. DYSPAREUNIA The medical term for painful intercourse is dyspareunia (ucq-bfa-BWB-nee-uh) -- which is defined aspersistent or recurrent genital pain that occurs just before, during or after intercourse. Painful sex can be caused by the radiation you received. Or maybe you have muscle spasms. In some cases, the pain is caused by another medical condition, such as a spinal problem. Some medicines can cause dryness in the vagina. And as a woman gets older, her vagina gets drum drier. It may also narrow, shorten, and get stiffer. This dryness can make sex painful. After radiation therapy to the perineal and pelvic area, you may experience vaginal dryness and vaginal tightness. Your oncology radiologist will give you dilators if this is indicated for the type of radiation you received. Vaginal discharge is normal and for life. Light spotting can also be normal with intercourse and dilator use. Follow-up care is a hamilton part of your treatment and safety. Be sure to make and go to all appointments, and call your doctor if you are having problems. It's also a good idea to know your test resultsand keep a list of the medicines you take. How can you care for yourself at home? Use a vaginal lubricant during sex. Examples are Astroglide, K-Y Jelly, and Wet Gel Lubricant. Increase the time you and your partner spend touching each other before sex. This is called foreplay. Try different positions for sex to find the most comfortable ones. Ask your doctor about exercises to strengthen and relax your pelvic muscles. Before sex, take a warm bath. This can relax you and reduce anxiety. If your doctor prescribes any medicines, take them exactly as prescribed. Call your doctor if you think you are having a problem with your medicine. Self Care Plan: What can You Do to Stay Healthy after Treatment for Uterine Cancer After Cancer Treatment in General: It is not uncommon for cancer to impact other areas of your lifesuch as relationships, work and mental health. If you develop financial concerns, resources are sometimes available to assist in these areas. Depression and anxiety can present either during or aftercancer diagnosis and treatment. It is important to discuss with your physician any of these concerns so these resources can be made available to you. Cancer treatments may increase your chance of developing other health problems years after you havecompleted treatment. The purpose of this self care plan is to inform you about what steps you can take to maintain good health after cancer treatment, including coping with side effects of treatment,reducing the risk of cancer returning, and watching for signs of cancer returning or of a new cancer. Keep in mind that every person treated for cancer is different and that these recommendations arenot intended to be a substitute for the advice of a doctor or other healthcare professional. Pleaseuse these recommendations to talk with your doctor and healthcare team about an appropriate follow up care plan for you. Society of Gynecologic Oncology. (2017). Survivorship Tool Kit. Retrieved from https://www.sgo.org/Clinical-Practice/Management/Survivorship-Toolkit/ Vaginal dryness Lubricants Cancer treatments often reduce the amount of lubricant produced in your vagina when you are excited. You may need extra lubrication to make intercourse comfortable. If you use a vaginal lubricant, choose a water-based gel that has no perfumes, coloring, spermicide, or flavors added, as these chemicals can irritate your delicate genital tissues. Lubricants can usually be found near the control or feminine hygiene products in drug stores or grocery stores. Common brands include K-Y Jelly?? and Astroglide??. Be aware that some of the newer lubricant products include herbal extracts (such as aloe or lavender), which may cause irritation or allergic reactions in some people. Also, warming g els can cause burning in some people. Be sure to read the labels, and talk with a nurse, doctor, orpharmacist if you have questions. Petroleum jelly (Vaseline??), skin lotions, and other oil-based lubricants are not good choices forvaginal lubrication. In some women, they may raise the risk of yeast infection. And if latex condoms are used, they can be damaged by petroleum products and lotions. Also, watch out for condoms or gels that contain nonoxynol-9 (N-9). N-9 is a control agent that kills sperm, but it can irritate the vagina, especially if the tissues are already dry or fragile. Before intercourse, put some lubricant around and inside the entrance of your vagina. Then spread some of it on your partner???s penis, fingers, or other insert. This helps get the lubricant inside your vagina. Many couples treat this as a part of foreplay. If vaginal penetration lasts more than a few minutes, you may need to stop briefly and use more lubricant. Even if you use vaginal moisturizers every few days, it???s best to use gel lubricant before and during sex. Vaginal moisturizers As women age, the vagina can naturally lose moisture and elasticity (the ability to stretch or movecomfortably). Cancer treatments and risk-reducing surgery (such as removing the ovaries) can hastenthese changes. Vaginal moisturizers are non-hormonal products intended to be used several times a week to improve overall vaginal health and comfort. You can buy them without a prescription. Vaginal health is not only important for sexual activity, but also for comfortable gynecologic exams. Vaginal moisturizers are designed to help keep your vagina moist and at a more normal acid balance (pH) for up to 2 to 3 days. Vaginal moisturizers are applied at bedtime for the best absorption. It should be noted that it???s not uncommon for women who???ve had cancer to need to use moisturizers up to 3 to 5 times per week. Vaginal moisturizers are different than lubricants - they last longer and are not usually used for sexual activity. Replens?? and K-Y Liquibeads?? are examples of vaginal moisturizers. Lubrin?? and Astroglide SilkenSecret?? are other moisturizers that are marketed as longer lasting than typical lubricants. Vitamin E gel caps can also be used as a vaginal moisturizer. Use a clean needle to make a small hole in the gel cap and either put the entire capsule into your vagina or squeeze some of the gel onto your fingers and put them into your vagina. Be aware that vitamin E may stain undergarments. [place] [employer] Guidelines on Nutrition and Physical Activity For Cancer Prevention 1. Achieve and maintain a healthy weight. Avoid weight gain during cancer treatment, whether you are at a healthy weight or overweight. Weight loss after recovery from treatment may benefit survivors who are overweight or obese. 2. Be physically active. Studies show that exercise is safe during cancer treatment, and can improve many aspects of health,including muscle strength, balance, fatigue, and depression. Physical activity after diagnosis is linked to living longer and a reduced risk of the cancer returning among people living with cancer, including breast, colorectal, prostate, and ovarian cancer. Aim for 30 min of exercise 5 days a week. 3. Eat a healthy diet, with an emphasis on fruits, vegetables, and whole grains. The most health benefits are associated with a diet high in fruits, vegetables, whole grains, poultry, and fish, and low in refined grains, red meat and processed meat (such as hot dogs), desserts, high-fat dairy products and Tamazight fries. Most of the studies about cancer and diet have focused on breast cancer. Studies show that taking vitamins, herbs and other nutritional supplements often does not help cancer patients live longer, and may even shorten life. Before taking any supplement, discuss it with your health care provider. 4. Don't smoke 5. If you drink alcohol, limit your intake. Drink no more than 1 drink per day for women or 2 per day for men. 6. Sunscreen use Exposure to ultraviolet rays is the leading cause of skin cancer. It is important to protect your skin. Sun damage builds up over time. It is important to use sunscreen every day. You should use a sunscreen that is water resistant and has an SPF of 30 or above. Remember to also protect your lips and eyes. 7. Routine blood pressure, cholesterol, and glucose monitoring. While many cancer survivors worry about their cancer coming back most cancer survivors are more likely to develop other chronic medical conditions such as high blood pressure, heart disease, and diabetes. Be sure to start and/or continue to see your primary care physician regularly. 8. Vaccines The flu is a respiratory infection caused by viruses. While most people with the flu get better on their own it can be serious. It can cause many medical complications and sometimes even . Be sure to get an annual influenza vaccine (flu shot). Pneumococcal diseases can cause serious infections in the lungs and bloodstream. A pneumococcal vaccine is recommended for all adults 65 years of age and older. It is also recommended for some younger adults who have chronic health conditions. Be sure and check with your doctor if you need a pneumococcal vaccine. 9. Routine Dental Care Your oral health may be more important than you think. It can contribute to various medical diseases and conditions. Daily oral hygiene helps decrease our risk of tooth decay and gum disease. Be sureto brush twice a day, floss daily, and see your dentist regularly for checkups and cleanings. 10. Eye Health Our eyes are called the windows to the world. Make sure you take good care of your eyes. Adults should have their eyes examined every 2 years until age 60. We should then undergo eye exams yearly. Individuals with contact lenses, glasses, or who are at high risk for eye problems (i.e. diabetes, family history of eye disease) should be seen more frequently. Additional Resources: Patients may have many varied questions and concerns after their cancer treatment ends. A list of local resources is provided below to assist you. [employer] [facility] [address] [place] [address] www.JDF.[facility] Zackary Perez [employer] [facility] [employer] [address] [place] [address] [employer] [employer] [address] [place] [address] [address] [place] [address] CancerCare website: www.cancercare.org National Cancer [place] Breast Cancer Foundation [address] [place] [address] www.bcfo.org PL[employer]SE MACHINE OPER[employer] [facility] (GYNCA) [address] [place] [address] www.gynca.org National Resources-Cancer Cancer Education Academy of Oncology Nurse & Patient Navigators: www.aonnonline.org [employer] [facility] Cancer: www.[facility].org [place] [employer] Society: www.cancer.org [place] Society of Clinical Oncology: www.cancer.net Association of Community Cancer Centers: www.accc-cancer.org ZUBKPX165: www.bvdelq696.org CancerCare: www.cancercare.org CancerGuide: www.cancerguide.org CancerQuest: www.cancerquest.org Centers for Disease Control and Prevention (CDC): www.cdc.gov [facility] [place] [facility]: www.touchedbycancer.org Get Palliative Care: www.getpalliativecare.org Global Resource for Advancing Cancer Education (NEFTALY): www.cancergrace.org [employer]: www.import.io.[employer] Foundation: www.Mr Po Mediag.P[place]ko National Cancer [place]: www.cancer.gov National Comprehensive Cancer Network (NCCN): www.nccn.org National LGBT Cancer Network: http://cancer-network.org OncoLink: www.oncolink.org Oncology Nursing Society: www.ons.org Patient Power: www.patientpower.info [employer] Cancer Support: www.pearlpoint.org Maui Saragosa Foundation: www.[facility] hospital[facility]foundation.org Rosette Pushpa Cancer Foundation: www.blochcancer.org Community Health Foundation: www.[facility].org Triage Cancer: www.triagecancer.org U.S. National Library of Medicine: www.nlm.nih.gov Financial Assistance [place] Cancer Society: www.cancer.org Salv[place] Kidney Fund: www.kidneyfund.org BenefitsCheckUp: www.benefitscheckup.org Bringing Hope [place]: www.bringingbanner.org CancerCare: www.cancercare.org/financial Cancer Financial Assistance Coalition: www.cancerfac.org [employer]: www.Writer.ly: www.healthwellfoundation.org Hope [place]: www.cancer.org/treatment/supportprogramsservices/hopelohans LIVESTRONG Foundation: www.livestrong.org Medicare.gov: www.medicare.gov NeedyMeds: www.needymeds.com Partnership for Prescription Assistance: www.pparx.org Patient Access Network Foundation: www.panfoundation.org Patient Advocate Foundation: www.patientadvocate.org Patient Services, Inc.: www.patientservicesinc.org The [place] J&By Foundation: www.pinsforpauly.org RxAssist: www.rxassist.org RxHope: www.rxhope.Flats&Houses Social Security Administration: www.ssa.gov Social Security Disability Resource Center: www.[employer].Flats&Houses [facility] Health Insurance Assistance Programs: www.shiptaBugcrowder.Petenko Stupid Cancer: www.stupidcancer.org Important caution: this is a summary document whose purpose is to review the highlights of the cancer treatment for this patient. This does not replace information available in the medical record, a complete medical history provided by the patient, examination and diagnostic information, or educational materials that describe strategies for coping with cancer and cancer therapies in detail. Both medical science and an individual???s health care needs change, and therefore this document is current only as of the date of preparation. This summary document does not prescribe or recommend any particular medical treatment or care for cancer or any other disease and does not substitute for the independent medical judgment of the treating professional. Resolved Problems Problem Noted Date Diagnosed Date Resolved Date Endometrial thickening on ultrasound 03/24/2018 04/30/2018 Acute blood loss anemia 03/23/201803/22 Vaginal bleeding 03/22/2018 04/30/2018 Hyponatremia 03/22/2018 03/24/2018
[2024-08-14 09:22] VITALS: BP 174/101; PULSE 94; RESP 16; TEMP 36.7; O2SAT 95; BMI 30.3
--- NOTE | 2024-08-14 11:55 | W.ED.BACK ---
HPI - Back Pain/Injury General: Chief Complaint: Back Pain/Injury Stated Complaint: low back pain Time Seen by Provider: 08/14/24 09:41 History of Present Illness: 78-year-old female with a history of hypertension and hyperlipidemia who presents emergency room with low back pain. This started a few days back. She has been having trouble sleeping in her bed. This morning it got so bad she had trouble moving. She says she now can move around. No saddle numbness, no urinary retention or incontinence, no focal motor deficit, no sensory deficit. no recent fever. no cough. no shortness of breath. no chest pain. no abdominal pain. no nausea or vomiting. no dysuria. no altered mental status. no edema. Related Data Home Medications ?Medication ?Instructions ?Recorded ?Confirmed aspirin 81 mg tablet,delayed 81 mg PO DAILY 11/16/19 08/10/24 release (Adult Aspirin Regimen) lisinopril 40 mg tablet 40 mg PO DAILY 11/16/19 08/10/24 metoprolol succinate 50 mg 50 mg PO DAILY 11/16/19 08/10/24 tablet,extended release 24 hr pravastatin 20 mg tablet 20 mg PO DAILY 11/16/19 08/10/24 levothyroxine 75 mcg tablet mcg PO 08/10/24 08/10/24 Previous Rx's ?Medication ?Instructions ?Recorded cyclobenzaprine 5 mg tablet 5 mg PO BEDTIME PRN muscle spasm 08/14/24 #10 tabs dexamethasone 6 mg tablet 6 mg PO DAILY 5 days #5 tabs 08/14/24 Allergies Allergy/AdvReac Type Severity Reaction Status Date / Time amoxicillin Allergy ALGY-Hives Verified 08/14/24 09:28 cephalexin Allergy Unknown Verified 08/14/24 09:28 Review of Systems Narrative: Constitutional symptoms: Negative except as documented in HPI. Skin symptoms: Negative except as documented in HPI. Eye symptoms: Negative except as documented in HPI. ENMT symptoms: Negative except as documented in HPI. Respiratory symptoms: Negative except as documented in HPI. Cardiovascular symptoms: Negative except as documented in HPI. Gastrointestinal symptoms: Negative except as documented in HPI. Genitourinary symptoms: Negative except as documented in HPI. Musculoskeletal symptoms: Negative except as documented in HPI. Neurologic symptoms: Negative except as documented in HPI. Psychiatric symptoms: Negative except as documented in HPI. Endocrine symptoms: Negative except as documented in HPI. PFSH ED PFSH: Social History Smoking and tobacco/nicotine status: never used tobacco/nicotine Physical Exam Narrative: EXAM NARRATIVE: General: Alert, no acute distress. Head: Normocephalic Neck: Trachea midline Eye: Extraocular movements are intact. Ears, nose, mouth and throat: Oral mucosa moist Respiratory: Respirations are non-labored Musculoskeletal: Normal ROM Back: no step off, no focal tenderness, some paraspinal muscle tenderness Neurological: Alert and oriented, No focal neurological deficit observed. Psychiatric: Cooperative, appropriate mood & affect. Course Vital Signs: Vital signs: Vital Signs Temperature 98.1 F 08/14/24 09:22 Pulse Rate 94 08/14/24 09:22 Respiratory Rate 16 08/14/24 09:22 Blood Pressure 174/101 08/14/24 09:22 Pulse Oximetry 95 08/14/24 09:22 Oxygen Delivery Me thod Room Air 08/14/24 09:22 MDM - Back Pain/Injury Medical Decision Making Assessment and plan: Low back pain ? IM Decadron in the emergency room. Home on steroids and nighttime low-dose muscle relaxer - Discharged home - Discussed plan with patient. Answered any questions. - Evaluation and treatment of this problem were appropriate in the emergency setting. No radiology studies performed this visit Discharge Plan Discharge Patient Disposition: Home Clinical Impression: Strain of lumbar region Condition: Stable Prescriptions: New dexamethasone 6 mg tablet 6 mg PO DAILY 5 Days Qty: 5 0RF cyclobenzaprine 5 mg tablet 5 mg PO BEDTIME PRN (Reason: muscle spasm) Qty: 10 0RF No Action lisinopril 40 mg tablet 40 mg PO DAILY metoprolol succinate 50 mg tablet extended release 24 hr 50 mg PO DAILY aspirin [Adult Aspirin Regimen] 81 mg tablet,delayed release (DR/EC) 81 mg PO DAILY pravastatin 20 mg tablet 20 mg PO DAILY levothyroxine 75 mcg tablet PO Discharge Orders: Discharge ED (Routine); Ordered 08/14/24 Ordered By: Caitlyn Plasencia Referrals: Mino Richter MD [Primary Care Provider, Family Practice] Discharge Diet: Usual diet Discharge Activity: Increase activity as tolerated Patient Instructions: Acute Low Back Pain (ED), Opioid Safety, Pain Management, Patient Portal & Johanny Instructions Activity Restrictions/Additional Instructions: Thank you for choosing [facility] for your healthcare needs today. You have been screened and evaluated and felt safe for discharge. Health conditions do change or evolve sometimes and as such it is important that you follow up with your Primary Doctor to be re checked, 3-5 days is a general good time frame for follow up. You are always welcome to return to the ED for re assessment if your symptoms are worsening or you have new concerns Print Language: Haitian Coding Level of Care Code ED Commodity Loan Clerk for Urmila Pierce
== END 2024-08-14 12:22 | disposition home or self-care (01) ==
PROVIDERS: Emergency Provider Emergency Medicine; PCP Family Medicine
DX: S39.012A Strain of muscle, fascia and tendon of lower back, initial encounter (principal); Z79.82 Long term (current) use of aspirin; X58.XXXA Exposure to other specified factors, initial encounter
CPT/HCPCS: 99283

== ENCOUNTER 2024-09-08 12:48 | Outpatient (CLI) | payer MEDICARE, SELFPAY | END 2024-09-08 12:49 | disposition home or self-care (01) | LOC: SPT 12:51 | PROVIDERS: PCP Family Medicine; Visit Provider Family Medicine | DX: Z46.89 Encounter for fitting and adjustment of other specified devices (principal); S32.000D Wedge compression fracture of unspecified lumbar vertebra, subsequent encounter for fracture with routine healing; X58.XXXD Exposure to other specified factors, subsequent encounter | CPT/HCPCS: L0637 ==

== ENCOUNTER 2024-10-15 09:46 | Inpatient (IN) | payer MEDICARE, SELFPAY ==
[2024-10-15] VITALS (8 sets, daily range): BP systolic 130–181; BP diastolic 75–96; PULSE 71–91; RESP 16–20; TEMP 36.4–37.1; O2SAT 92–96
--- NOTE | 2024-10-15 09:52 | ED_ITS ---
HPI - Back Pain/Injury 2 General: Chief Complaint: Back Pain/Injury Stated Complaint: low back pain History of Present Illness: 78-year-old female presents emergency ro om via EMS with complaints of low back pain. Patient states around August 21 she had a popping sensation in her back when she was bending over. She then increased swelling in her legs. She denies chest pain. No dysuria dysuria frequency is had been able to get up or care for herself recently she lives at home alone. No orthopnea. Associated symptoms: Deny abdominal pain, chills, dysuria, fever(s) or urinary urgency Related Data Home Medications ?Medication ?Instructions ?Recorded ?Confirmed lisinopril 40 mg tablet 40 mg PO DAILY 11/16/1909/19 metoprolol succinate 50 mg 50 mg PO DAILY 11/16/19 tablet,extended release 24 hr pravastatin 20 mg tablet 20 mg PO DAILY 11/16/1909/19 levothyroxine 75 mcg tablet 75 mcg PO QAM 08/10/24 Previous Rx's ?Medication ?Instructions ?Recorded duloxetine 30 mg capsule,delayed 30 mg PO DAILY #30 ca ps 10/18/24 release hydrocodone 5 mg-acetaminophen 325 1 tab PO Q4H PRN Mo derate To 10/18/24 mg tablet Severe Pain #30 tabs linezolid 600 mg tablet (Zyvox) 600 mg PO BID #10 tabs 10/18/24 Allergies Allergy/AdvReac Type Severity Reaction Status Date / Time amoxicillin Allergy ALGY-Hives Verified 08/14/24 09:28 cephalexin Allergy Unknown Verified 08/14/24 09:28 Review of Systems 2 Const: Denies: fever(s) or chills Card: Denies: chest pain Resp: Denies: dyspnea GI: Denies: abdominal pain : Denies: dysuria, urinary frequency or urinary urgency Musc: Reports: back pain; Denies: neck pain Skin/Breast: Denies: rash PFSH ED 2 PFSH: Medical History Dyslipidemia History of hypothyroidism History of hypertension Surgical History Hx of hysterectomy Hx of eye surgery Hx of heart artery stent x 2 in 2006 Social History Smoking and tobacco/nicotine status: never used tobacco/nicotine Physical Exam 2 Const: GENERAL APPEARANCE: cooperative ORIENTATION/CONSCIOUSNESS: Yes awake HENMT: COMMON NORMALS: normocephalic and atraumatic HEAD & SCALP: n ormocephalic and atraumatic Resp: COMMON NORMALS: normal respiratory effort, No retractions, No use of accessory muscles and clear to auscultation bilaterally AUSCULTATION: clear to auscultation bilaterally Cardio: COMMON NORMALS: regular rate, regular rhythm and No murmurs present (Cardio) RATE: regular rate RHYTHM: regular rhythm GI: COMMON NORMALS: Soft to palpation and No hepatosplenomegaly present A USCULTATION: Yes normoactive bowel sounds PALPATION: Yes Soft to palpation, No Tenderness to palpation present (GI), No Guarding due to palpation present (GI) and Yes No hepatosplenomegaly present Extremity: COMMON NORMALS: normal to inspection, capillary refill normal and no calf tenderness OTHER: Edema lower extremities bilaterally to the level of the knees. Right leg red and mildly inflamed tender to the touch. No open wounds or drainage. Skin: COMMON NORMALS: no rashes or lesions noted GENERAL SKIN EXAM: no rashes or lesions noted Course 2 Vital Signs: Vital signs: Vital Signs Temperature 98.0 F 10/18/24 15:57 Pulse Rate 67 10/18/24 15:57 Respiratory Rate 19 H 10/18/24 15:57 Blood Pressure 193/90 10/18/24 15:57 Pulse Oximetry 94 10/18/24 15:57 Oxygen Delivery Me thod Room Air 10/18/24 15:57 MDM - Back Pain/Injury Medical Decision Making New L1 compression fracture mild cellulitis right lower leg discussed with hospitalist will admit. T12 fracture noted on the CT of the lumbar spine reported as chronic with mild retropulsion of the posterior aspect mild central stenosis. Pain is intractable. Treat cellulitis pain control consultation for orthopedic spine surgery discussed with hospitalist orders written Labs 10/15/24 10:36 10/18/24 02:55 Radiology Impressions Chest X-Ray 10/15/24 10:02 IMPRESSION: 1. Mild cardiac enlargement. No acute process. Lumbar Spine CT 10/15/24 10:02 IMPRESSION: 1. Distraction fracture L1 vertebral body with widening of the endplates measuring 13 mm anteriorly. Fracture extends to the pedicles. No significant retropulsion. Posterior elements otherwise appear intact. 2. Chronic vertebral plana fracture at T12 with mild retropulsion and mild central canal stenosis. 3. Chronic biconcave compression fractures L4 and L5. 4. Marked urinary distention of the bladder partially visualized. Lumbar Spine MRI 10/16/24 08:00 IMPRESSION: 1. Subacute appearing distracted endplate fracture at L1 without retropulsion of bone into the spinal canal. 2. Multilevel lumbar spondylosis with spinal stenosis identifiable at L3-L4 and L4-L5. 3. Note that there is a separate report for MRI of the thoracic spine today. Thoracic Spine MRI 10/16/24 08:00 IMPRESSION: 1. Subacute severe compression fracture of T12 with retropulsion of bone into the canal and mild spinal stenosis and subtle cord compression. 2. Note that there is a separate report for MRI lumbar spine that was performed today. ADDENDUM: 10/16/24 1908 THIS REPORT CONTAINS FINDINGS THAT MAY BE CRITICAL TO PATIENT CARE. The findings were verbally communicated via telephone conference with Dr. Morejon at 7:06 PM CDT on 10/16/2024. The findings were acknowledged and understood. Laboratory Results WBC 6.13 10^3/uL (3.29-11.43) 10/15/24 10:36 RBC 4.74 10^6/uL (3.85-5.65) 10/15/24 10:36 Hgb 14.40 g/dL (11.27-16.99) 10/15/24 10:36 Hct 43.3 % (36-47) 10/15/24 10:36 MCV 91.4 fl (85-98) 10/15/24 10:36 MCH 30.4 pg (27-33) 10/15/24 10:36 MCHC 33.3 g/dL (30-55) 10/15/24 10:36 RDW 14.5 % (12.1-15.1) 10/15/24 10:36 Plt Count 271 10^3/cmm (157-399) 10/15/24 10:36 MPV 8.2 fL (7.4-10.4) 10/15/24 10:36 Neut % (Auto) 77.4 % 10/15/24 10:36 Lymph % (Auto) 13.5 % 10/15/24 10:36 [place] % (Auto) 7.3 % 10/15/24 10:36 Eos % (Auto) 0.3 % 10/15/24 10:36 Baso % (Auto) 0.8 % 10/15/24 10:36 Neut # (Auto) 4.74 10^3/uL (1.8-7.7) 10/15/24 10:36 Lymph # (Auto) 0.8 10^3/uL (0.8-4.8) 10/15/24 10:36 [place] # (Auto) 0.5 10^3/uL (0.2-0.9) 10/15/24 10:36 Eos # (Auto) 0.0 10^3/uL (0.0-0.8) 10/15/24 10:36 Baso # (Auto) 0.1 10^3/uL (0.0-0.1) 10/15/24 10:36 Nucleated RBC % (auto) 0 % 10/15/24 10:36 Nucleated RBCs # 0.0 /100WBC 10/15/24 10:36 Sodium 133 mmol/L (136-145) L 10/15/24 10:36 Potassium 3.5 mmol/L (3.5-5.1) 10/15/24 10:36 Chloride 95 mmol/L (98-107) L 10/15/24 10:36 Carbon Dioxide 26 mmol/L (22-29) 10/15/24 10:36 Anion Gap 15.5 (5-19) 10/15/24 10:36 BUN 8 mg/dL (8-23) 10/15/24 10:36 Creatinine 0.6 mg/dL (0.5-0.9) 10/15/24 10:36 GFR Calculation Not Reportable 10/15/24 10:36 Glucose 133 mg/dL (65-115) H 10/15/24 10:36 Calculated Osmolality 276 mOsm/kg (285-295) L 10/15/24 10:36 Calcium 8.6 mg/dL (8.5-10.5) 10/15/24 10:36 Total Bilirubin 0.7 mg/dL (0.15-1.2) 10/15/24 10:36 AST 44 U/L (0-32) H 10/15/24 10:36 ALT 23 U/L (0-33) 10/15/24 10:36 Alkaline Phosphatase 113 U/L (35-105) H 10/15/24 10:36 Troponin T Baseline 31 ng/L (0-10) H 10/15/24 10:36 Troponin T 120 Minute 31.22 ng/L (0-10) H 10/15/24 12:29 Delta Troponin T 0.22 ABS# (0-10) 10/15/24 12:29 C-Reactive Protein 21.3 mg/L (0.0-4.9) H 10/15/24 10:36 NT-Pro-B Natriuret Pep 483 pg/mL (0-450) H 10/15/24 10:36 Total Protein 5.7 g/dL (6.6-8.7) L 10/15/24 10:36 Albumin 3.8 g/dL (3.5-5.2) 10/15/24 10:36 Globulin 1.9 g/dL (1.3-4.6) 10/15/24 10:36 All radiology interpretation(s) finalized by discharge Discharge Plan Discharge Patient Disposition: Placed in Observation Admit Provider: Tru Gomez Clinical Impression: Other closed fracture of twelfth thoracic vertebra with routine healing, subsequent encounter, Closed compression fracture of L1 vertebra, Cellulitis of right lower extremity Discharge Diet: Cardiac and Low Cholesterol Discharge Activity: Use walker/crutches as instructed, Wheelchair as instructed and As per PT/OT instructions Coding Level of Care Code ED Wireless Sales Associate for Urmila Pierce
--- OUTSIDE RECORDS SUMMARY | 2024-10-15 09:52 | XMS_ITS | Encounter Summary ---
Author Organization [facility] Address [address] [place] [address] Care Team Providers Care Ceramic Tile Mechanic Name Role Phone Mino Richter MD Primary Care Provider [phone] Reason for Referral * CT Scan (Routine) - Closed Specialty Diagnoses / Procedures Referred By Contac t Referred To Contact Diagnoses Malignant neoplasm of endometrium (CMS/HCC) Procedures CT GUIDED RAD THERAPY FIELD Mariajose Carey MD [address] [place] [address] Phone: tel: fax: [facility] Pre-Registration [place] CALL TO MAKE APPOINTMENT ONLY [address] [place] [address] Phone: tel: fax: Referral ID Status Reason Start Date Expiration Date Visits Re quested Visits Authorized [id number] Closed 06/03/2018 07/04/2019 1 1 Encounter Details Date Type Department Care Team (Late st Contact Info) Description 06/03/2018 Ancillary Orders [facility] [address] [address] Mariajose Carey MD [address] [place] [address] Malignant neoplasm of endometrium (CMS/HCC) Social History Tobacco Use Types Packs/Day Years Used Date Smoking Tobacco: Never Smokeless Tobacco: Never Alcohol Use Standard Drinks/Week Comments No 0 (1 standard drink = 0.6 oz pur e alcohol) Comments No Sex and Gender Information Value Date Recorded Sex Assigned at Not on file Legal 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
--- OUTSIDE RECORDS SUMMARY | 2024-10-15 09:52 | XMS_ITS | Encounter Summary ---
Author Organization [facility] Address [address] [place] [address] Care Team Providers Care Angle Dozer Operator Name Role Phone Mino Richter MD Primary Care Provider [phone] Reason for Referral * CT Scan (Routine) - Closed Specialty Diagnoses / Procedures Referred By Contac t Referred To Contact Radiation Oncology Diagnoses Malignant neoplasm of endometrium (CMS/HCC) Procedures CT GUIDED RAD THERAPY [facility] Mariajose Carey MD [address] [place] [address] Phone: tel: fax: [facility] [address] [address] Phone: tel: fax: Referral ID Status Reason Start Date Expiration Date Visits Re quested Visits Authorized [id number] Closed 06/04/2018 07/05/2019 1 1 * CT Scan (Routine) - Closed Specialty Diagnoses / Procedures Referred By Contac t Referred To Contact Diagnoses Malignant neoplasm of endometrium (CMS/HCC) Procedures CT GUIDED RAD THERAPY [facility] Mariajose Carey MD [address] [place] [address] Phone: tel: fax: [facility] Pre-Registration [place] CALL TO MAKE APPOINTMENT ONLY [address] [place] [address] Phone: tel: fax: Referral ID Status Reason Start Date Expiration Date Visits Re quested Visits Authorized [id number] Closed 06/04/2018 07/05/2019 1 1 * CT Scan (Routine) - Closed Specialty Diagnoses / Procedures Referred By Contac t Referred To Contact Diagnoses Malignant neoplasm of endometrium (CMS/HCC) Procedures CT GUIDED RAD THERAPY FIELD Mariajose Carey MD [address] [place] [address] Phone: tel: fax: [facility] Pre-Registration [place] CALL TO MAKE APPOINTMENT ONLY [address] [place] [address] Phone: tel: fax: Referral ID Status Reason Start Date Expiration Date Visits Re quested Visits Authorized [id number] Closed 06/04/2018 07/05/2019 1 1 Encounter Details Date Type Department Care Team (Late st Contact Info) Description 06/04/2018 Ancillary Orders [facility] [address] [address] Mariajose Carey MD [address] [place] [address] Malignant neoplasm of endometrium (CMS/HCC) Social History Tobacco Use Types Packs/Day Years Used Date Smoking Tobacco: Never Smokeless Tobacco: Never Alcohol Use Standard Drinks/Week Comments No 0 (1 standard drink = 0.6 oz pur e alcohol) Comments No Sex and Gender Information Value Date Recorded Sex Assigned at Not on file 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
--- OUTSIDE RECORDS SUMMARY | 2024-10-15 09:52 | XMS_ITS | Clinical Summary ---
Author Organization [facility] de Address [address] [place] [address] Phone Care Team Providers Care Storeroom Clerk Name Role Phone Mino Richter MD Primary Care Provider [phone] Allergies Active Allergy Reactions Criticality Noted Date [...] 1 Tablet (88 mcg) by mouth daily principal architect. 30 Tablet 0 9 Active Additional Information [...] Encounters Date Type Department Care Team Description 10/06/2024 External Device Data STL ABSTRACTION Provider, Abstract 09/22/2024 External Device Data [facility] ABSTRACTION Provider, Abstract 09/02/2024 External Device Data [facility] ABSTRACTION Provider, Abstract 09/01/2024 External Device Data ST[facility] ABSTRACTION Provider, Abstract 08/11/2024 External Device Data STL ABSTRACTION Provider, [...] on file Legal Sex Female 4:23 AM NURSES' ASSOCIATION COUNSELOR Gender Identity Not on file Sexual Orientation [...] 1-dose 75+ series) 11/03/2018 INFLUENZA VACCINE (#1) 2024 Medical Devices Implanted Type Area Partner Marketing Manager Device Identifier Shelf Expiration Date Model / Serial / Lot Hemostatic Surgiflo 8ml W/Thrombin 2994 - [id number] Implanted:Qty: 1 on 04/17/2018 by Ynes Allen DO Hemostatic N/A: Abdomen [employer] 08/18/2019 [id number] / / [id number] Insurance MEDICARE PART A AND B [facility] * Guarantor: LAUREN MORENO Account Type Relation to Patient Date of Phone Billing Address Personal/Family [address] [place] [address] [employer] Medicare Part D Advance Directives For more information, please contact: [phone] Documents on File Type Date Recorded Patient Eyeglass Maker Expl anation Advance Directive POA 04/17/2018 8:35 AM A dvance Directive POA Advance Directive Living Will 04/17/2018 8:35 AM Advance Directive Living Will Care Teams Storeroom Clerk Relationship Specialty Start Date End Date Mino Richter MD [address] [address] PCP - General Family Practice 03/24/18
--- OUTSIDE RECORDS SUMMARY | 2024-10-15 09:52 | XMS_ITS ---
Author Organization [facility] de Address [address] [place] [address] Phone Care Team Providers Care Warehouse Receiving Supervisor Name Role Phone Mino Richter MD Primary Care Provider [phone] Active Problems Problem Noted Date Diagnosed Date [...]
--- OUTSIDE RECORDS SUMMARY | 2024-10-15 09:52 | XMS_ITS | Clinical Summary ---
Author Organization [facility] de Address [address] [place] [address] Phone Care Team Providers Care Process Planner Name Role Phone Mino Richter MD Primary Care Provider Allergies Active Allergy Reactions Criticality Noted Date [...] 1 Tablet (88 mcg) by mouth daily human resources operations specialist. 30 Tablet 9 Active aspirin (WADE CHEWABLE) [...] on file Legal Sex Female 11:29 AM RN LVN Gender Identity Not on file Sexual Orientation [...] (#1) 2024 Medical Devices Implanted Type Area Commercial Instructor Supervisor Device Identifier Shelf Expiration Date Model / Serial / Lot Hemostatic Surgiflo 8ml W/Thrombin 2994 - [id number] Implanted:Qty: 1 on 04/17/2018 by Ynes Allen DO at [facility] N/A: Abdomen [employer] 08/18/2019 2994 / / [id number] Insurance MEDICARE PART A AND B [facility] RX Driven[employer] Medicare Part D Advance Directives For more information, please contact: [phone] Documents on File Type Date Recorded Patient Music Autographer Expl anation Advance Directive POA 04/17/2018 8:35 [...] 8:40 AM 03/23/2018 4:52 PM Care Teams Process Planner Relationship Specialty Start Date End Date Mino Richter MD [address] [phone] PCP - General Family Practice 03/24/18
--- OUTSIDE RECORDS SUMMARY | 2024-10-15 09:52 | XMS_ITS ---
Author Organization [facility] [facility] Address [address] [place] [address] Phone Care Team Providers Care Material Cutter Name Role Phone Mino Richter MD Primary Care Provider [phone] Active Problems Problem Noted Date Diagnosed Date Other specified hypothyroidism 03/23/2018 Benign hypertension 03/22/2018 Personal history of FIGO Sta ge IB Adenocarcinoma of endometrium Cancer Staging:Pathologic:FIGO Stage IB- Signed by Omayra Cooper APRN-CHILD SUPPORT INVESTIGATOR on 04/27/2018 Humerus fracture Overview (01/06/2020): left [...] Endometrial/Uterine Cancer Survivorship Care Plan Provided by [facility] on 10/22/18 General Information Patient Name: Lauren Fisher Patient : 1945 Care Team Gynecologic Oncologist: Dr. Ynes Allen DO Surgeon: Dr. 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 See your health critical care physician about non-medication recommendations and medication-based treatment. Hot [...] more loosely as you move up your leg.([facility] 2012) How to help prevent and control [...] are more likely to have severe lymphedema. [place] Cancer Society, Nov, 2011, accessed at www.cancer.org. Sexual intimacy issues: Vaginal dryness and scarring at the top of the vagina causing discomfort can occur. Use of a lubricant and dilator can help prevent or improve vaginal symptoms. DYSPAREUNIA The medical term for painful intercourse is dyspareunia (kdk-sgn-SXC-nee-uh) -- which is defined aspersistent or recurrent [...] a woman gets older, her vagina gets dipper and drier. It may also narrow, shorten, and [...] aware that vitamin E may stain undergarments. [place] Cancer Society Guidelines on Nutrition and Physical [...] hot dogs), desserts, high-fat dairy products and Bhutanese fries. Most of the studies about cancer [...] resources is provided below to assist you. [employer] Cancer Resource Program [address] [place] [address] www.Eventdoo.[facility] Zackary Perez [employer] [facility] [address] [place] [address] [place] Cancer Society [address] [place] [address] [address] [place] [address] CancerCare website: www.cancercare.org National Cancer [place] Breast Cancer Foundation [address] [place] [address] www.bcfo.org DIRECTOR OF INTEGRATED MARKETING Cancer [place] (GYNCA) [address] [place] [address] www.gynca.org National Resources-Cancer Cancer Education Academy of Oncology Nurse & Patient Navigators: www.aonnonline.org Cammies Benit[facility] [place] for Childhood Cancer: www.[facility].org [place] Cancer Society: www.cancer.org [place] Society of Clinical Oncology: www.cancer.net Association of Community Cancer Centers: www.accc-cancer.org YBZJLS400: www..org CancerCare: www.cancercare.org CancerGuide: www.cancerguide.org CancerQuest: www.cancerquest.org Centers for Disease Control and Prevention (CDC): www.cdc.gov The G[place]: www.touchedbycancer.org Get Palliative Care: www.getpalliativecare.org Global Resource for Advancing Cancer Education (NEFTALY): www.cancergrace.org The PS [employer]: www.SNADEC.Seedcamp Foundation: www.Manzuo.comg.CityFashion for Business National Cancer [place]: www.cancer.gov National Comprehensive Cancer Network (NCCN): www.nccn.org National LGBT Cancer Network: http://cancer-network.org OncoLink: www.oncolink.org Oncology Nursing Society: www.ons.org Patient Power: www.patientpower.info PearlPoint Cancer Support: www.pearlpoint.org [place] Foundation: www.[facility] care servicesreetfoundation.org Rosette Pushpa Cancer Foundation: www.blochcancer.org [facility] Foundation: www.[facility].org Triage Cancer: www.triagecancer.org U.S. National Library of Medicine: www.nlm.nih.gov Financial Assistance [place] Cancer Society: www.cancer.org [place] Kidney Fund: www.kidneyfund.org BenefitsCheckUp: www.benefitscheckup.org Bringing Hope [place]: www.[facility].org CancerCare: www.cancercare.org/financial Cancer Financial Assistance Coalition: www.cancerfac.org The Adormo: www.Booklr: www.healthwellfoundation.org Hope [place]: www.cancer.org/treatment/supportprogramsservices/hopelohans LIVESTRONG Foundation: www.livestrong.org Medicare.gov: www.medicare.gov NeedyMeds: www.needymeds.com Partnership for Prescription Assistance: www.pparx.org Patient Access Network Foundation: www.panfoundation.org Patient Advocate Foundation: www.patientadvocate.org Patient Services, Inc.: www.patientservicesinc.org The Kapture Audioy Foundation: www.pinsforpauly.org RxAssist: www.rxassist.org RxHope: www.rxhope.CoachBase Social Security Administration: www.ssa.gov Social Security Disability Resource Center: www.Notch Wearable Movement Capture.CoachBase [facility] Health Insurance Assistance Programs: www.shiptaNearDesker.CityFashion for Business Stupid Cancer: www.stupidcancer.org Important caution: this is [...]
--- NOTE | 2024-10-15 10:02 | CT_ITS ---
WS: [id number] CT LUMBAR SPINE TECHNIQUE: Noncontrast CT of the lumbar spine with coronal and sagittal reformatted images. CLINICAL INFORMATION: Back pain: Osteopenia COMPARISON: None. DLP: 804.[address] scans at [facility] use at least one of these dose optimization techniques: automated exposure control; mA and/or kV adjustment per patient size (includes targeted exams where dose is matched to clinical indication); or iterative reconstruction. FINDINGS: Advanced osteopenia. Chronic appearing biconcave compression L4 and L5. New transverse distraction fracture through the L1 vertebral body with distraction and widening of the endplates. Fracture extends to involve the posterior cortex. No significant retropulsion. Fracture extends to the pedicles. Fracture widening measures approximately 13 mm. Fracture appears new since the prior radiograph 08/13/2024. Chronic vertebral plana deformity at T12 with mild retropulsion of the posterior superior cortex with mild central canal stenosis. Fibrotic changes with parenchymal scarring and subsegmental atelectasis in the lung bases. Partially visualized RIGHT hepatic cyst. LEFT renal cyst. Normal caliber abdominal aorta. Marked urinary distention of the bladder partially visualized. Vascular calcification. L1-L2: Spinal canal and foramen are patent. Chronic appearing fracture LEFT transverse process of L1. L2-L3: Spinal canal and foramen are patent. L3-L4: Mild disc bulge with mild central canal stenosis. Moderate facet arthropathy. Foramen are patent. L4-L5: Mild annular bulging. Mild central canal stenosis. Moderate facet arthropathy. Mild LEFT foraminal narrowing. L5-S1: Mild disc bulging. Slight anterolisthesis. Mild RIGHT greater than LEFT foraminal narrowing. Moderate facet arthropathy. Visualized pelvic bony structures: Normal. Paravertebral soft tissues: Normal. CT/CT lumbar spine wo con* [id number] IMPRESSION: 1. Distraction fracture L1 vertebral body with widening of the endplates measu ring 13 mm anteriorly. Fracture extends to the pedicles. No significant retropu lsion. Posterior elements otherwise appear intact. 2. Chronic vertebral plana fracture at T12 with mild retropulsion and mild rolly tral canal stenosis. 3. Chronic biconcave compression fractures L4 and L5. 4. Marked urinary distention of the bladder partially visualized.
--- NOTE | 2024-10-15 10:02 | USCV_ITS ---
Lauren Fisher Age: 78 Gender: F : 1945 Exam Date: 10/15/2024 10:45 Ordering Phys: Michael Campbell DO Technologist: Exam Location: [facility] Indication: leg swelling PROCEDURES: Venous duplex imaging was performed in bilateral lower extremities. The venous duplex Doppler examination of both lower extremities was performed in the standard fashion. FINDINGS: Normal 2-D Doppler and augmentation and compressibility throughout the lower extremity venous structures. Additional imaging through the proximal calf veins also reveals no thrombus. There is superficial thrombus in lt left great saph from the knee down. CONCLUSIONS Superficial thrombus LEFT GSV from the knee extending inferiorly No evidence of right lower extremity DVT. No evidence of left lower extremity DVT. Tuan Sanchez MD (Electronically Signed) Final Date: 15 October 2024 14:00 S
--- NOTE | 2024-10-15 10:02 | XR_ITS ---
WS: [id number] Exam: XR chest 1V portable [id number] Date/Time of Exam: 10/15/2024 10:02 AM Reason For Exam: dyspnea/cough Comparison 03/21/2018. The lungs are fully expanded and clear. Mild plaque atelectasis in the bilateral bases. Mild cardiac enlargement. Marked ectasia of the thoracic aorta. No pleural effusion. Bony structures are intact. Healed proximal LEFT humeral fracture with plate and screw fixation. XR/XR chest 1V portable [id number] IMPRESSION: 1. Mild cardiac enlargement. No acute process.
--- NOTE | 2024-10-15 10:03 | ECG_ITS ---
[employer] [facility] Test Date: 2024-10-15 Pat Name: Lauren Fisher Department: Room: Gender: Female Compensation/Benefits Specialist: : 1945 Requested By: Michael Ramos Order Number: [id number] Yady MD: Derick Bahena M.D. Measurements Intervals [place] Rate: 73 P: 31 [place]: 225 QRS: -9 QRSD: 98 T: 12 QT: 386 QTc: 427 Interpretive Statements SINUS RHYTHM WITH FIRST DEGREE AV BLOCK LOW QRS VOLTAGE IN PRECORDIAL LEADS [QRS DEFLECTION < 1.0 mV IN CHEST LEADS] POSSIBLE ANTERIOR MYOCARDIAL INFARCTION , PROBABLY OLD [30 ms Q WAVE IN V3/V4, OR R < 0.2 mV IN V4] INFERIOR MYOCARDIAL INFARCTION , PROBABLY OLD [40+ ms Q WAVE AND/OR ST/T ABNORMALITY IN II/aVF] Compared to ECG 11/18/2019 07:33:44 Low QRS voltage now present Myocardial infarct finding still present Electronically Signed On 10-16-2024 22:42:36 CDT by Derick Bahena M.D. [id number] [id number]
[2024-10-15 10:49] LABS: Hematocrit 43.3 % (36-47); Hemoglobin 14.40 g/dL (11.27-16.99); Mean Corpuscular HGB Conc 33.3 g/dL (30-55); Mean Corpuscular Hemoglobin 30.4 pg (27-33); Mean Corpuscular Volume 91.4 fl (85-98); Nucleated Red Blood Cells % 0 %; Platelet Count 271 10^3/cmm (157-399); Red Blood Count 4.74 10^6/uL (3.85-5.65); White Blood Count 6.13 10^3/uL (3.29-11.43)
[2024-10-15 11:07] LABS: Troponin(5th) Baseline 31 ng/L (0-10)
[2024-10-15 11:16] LABS: Alanine Aminotransferase 23 U/L (0-33); Albumin Level 3.8 g/dL (3.5-5.2); Alkaline Phosphatase 113 U/L (35-105); Anion Gap 15.5 (5-19); Aspartate Amino Transferase 44 U/L (0-32); Blood Urea Nitrogen 8 mg/dL (8-23); Calcium 8.6 mg/dL (8.5-10.5); Carbon Dioxide 26 mmol/L (22-29); Chloride 95 mmol/L (98-107); Globulin 1.9 g/dL (1.3-4.6); Glucose 133 mg/dL (65-115); NT Pro B Type Natriuretic Pept 483 pg/mL (0-450); Osmolality Calculated 276 mOsm/kg (285-295); Potassium 3.5 mmol/L (3.5-5.1); Sodium 133 mmol/L (136-145); Total Protein 5.7 g/dL (6.6-8.7)
--- NOTE | 2024-10-15 11:23 | PC.PHAR ---
Pt takes her meds in the am
[2024-10-15] MEDS: HYDROcodone-acetaminophen 5-325 mg Tablet 1 TAB PO ×3 (12:26→22:31)
[2024-10-15 13:01] LABS: Troponin 5 2HR 31.22 ng/L (0-10); Troponin 5 2HR Delta 0.22 ABS# (0-10)
--- NOTE | 2024-10-15 14:40 | ECG_ITS ---
[facility] Date: 2024-10-15 Pat Name: Lauren Fisher Department: Room: Gender: Female Turn Out: : 1945 Requested By: Michael Ramos Order Number: [id number] Yady MD: Derick Bahena M.D. Measurements Intervals [place] Rate: 71 P: 45 MD: 232 QRS: -12 QRSD: 90 T: 3 QT: 414 QTc: 452 Interpretive Statements SINUS RHYTHM WITH FIRST DEGREE AV BLOCK POSSIBLE ANTERIOR MYOCARDIAL INFARCTION , PROBABLY OLD [30 ms Q WAVE IN V3/V4, OR R < 0.2 mV IN V4] Compared to ECG 10/15/2024 11:25:33 No significant changes Electronically Signed On 10-16-2024 22:54:04 CDT by Derick Bahena M.D. [id number] [id number]
--- NOTE | 2024-10-15 16:41 | PM.HP ---
Providers/Chief Complaint Admitting Physician: Tru Gomez DO Primary Care Provider: Mino Richter MD Chief Complaint: low back pain History of Present Illness Lauren Fisher is a 78 year old female came to the ER today for reports of low back pain. Patient is unable to give an accurate history. Report from the ER doctor says that around August 21 she felt a popping sensation in her back when she was bent over. The atwfys-dj-vsd says there was no fall. They do both report that there has been increased swelling in her legs for this past 2 months. Both lower extremities are getting red. She has been unable to get out of her chair and unable to care for herself. Patient and lqxlyi-yz-bhm report that the patient was seen for her back pain told that she had a fracture and discharged home. Review of her chart shows that the patient did come to the office but with her primary care physician on 08/10/2024 with low back pain. And possibly came on 08/14/2024. On 08/13/2024 I do see that a plain film of the lumbar spine showed nondisplaced spondee by concave insufficiency compression deformities of T7 T9 T12 L4 and L5 thus the L1 fracture that we have identified this admission is acute Review of Systems Const: Denies: fever(s) or chills Eyes: Denies: change in vision ENMT: Denies: throat pain or nasal congestion Card: Denies: chest pain or palpitations Resp: Denies: dyspnea or productive cough GI: Denies: abdominal pain, nausea, vomiting or change in stool character : Denies: dysuria Musc: Reports: back pain, extremity pain and extremity swelling Skin/Breast: Denies: rash or lesions Neuro: Denies: headache(s) or dizziness Psych: Denies: anxiety or depression [place]/Lymph: Denies: easy bruising or easy bleeding Medications/Allergies Home Medications ?Medication ?Instructions ?Recorded ?Confirmed ?Last Taken ?Type aspirin 81 mg tablet,delayed 81 mg PO DAILY 11/16/19 10/15/24 10/14/24 History release (Adult Aspirin Regimen) lisinopril 40 mg tablet 40 mg PO DAILY 11/16/19 10/15/24 10/14/24 History metoprolol succinate 50 mg 50 mg PO DAILY 11/16/19 10/15/24 10/14/24 History tablet,extended release 24 hr pravastatin 20 mg tablet 20 mg PO DAILY 11/16/19 10/15/24 10/14/24 History levothyroxine 75 mcg tablet 75 mcg PO QAM 08/10/24 10/15/24 10/14/24 History Allergies Allergy/AdvReac Type Severity Reaction Status Date / Time amoxicillin Allergy ALGY-Hives Verified 08/14/24 09:28 cephalexin Allergy Unknown Verified 08/14/24 09:28 PFSH Acute PFSH: Medical History Dyslipidemia History of hypothyroidism History of hypertension Surgical History Hx of hysterectomy Hx of eye surgery Hx of heart artery stent x 2 in 2006 Social History Smoking and tobacco/nicotine status: never used tobacco/nicotine Vitals/I&O/Wt Last Vital Signs Temp 97.9 F 10/15/24 09:47 Pulse 84 10/15/24 09:47 Resp 16 10/15/24 09:47 BP 181/78 10/15/24 09:47 Pulse Ox 95 10/15/24 09:47 10/15/24 10/15/24 10/15/24 06:59 14:59 22:59 Intake Total 0 / 0 Balance 0 / 0 Physical Exam Narrative: Elderly female in no acute distress at time of exam. She repeats herself and gets confused on the time of her back pain and seeing the doctor. Patient is alert oriented to self and this facility and names her rbglgjik-fb-vwa. She is nonfocal to exam HEENT head is normocephalic atraumatic nasopharynx pharyngeal mucosa moist and pink patient has her own teeth missing the majority. Neck is supple no JVD carotid bruits or lymphadenopathy Abdomen soft mild tenderness nonspecific normal active bowel sounds no hepatosplenomegaly Extremities bilateral extremities with anterior erythema and edema. She has some bullous formations on the anterior of both shins Back with kyphosis and deformity creating a large abdomen from this kyphosis Psych mood and affect appear appropriate she does display signs of dementia with her repetitive conversation and looking to her mpyjmn-bc-bmo for answers. Skin no other rashes or abnormalities noted except on the lower extremities as described above Data 10/15/24 10:36 10/15/24 10:36 CXR: My impression: No acute pulmonary cardiac condition Radiologist's impression: IMPRESSION: 1. Mild cardiac enlargement. No acute process. Other CT: My impression: Reviewed with emergency room physician and saw the posterior fracture of L1. T12 also appeared abnormal with loss of height Radiologist's impression: IMPRESSION: 1. Distraction fracture L1 vertebral body with widening of the endplates measuring 13 mm anteriorly. Fracture extends to the pedicles. No significant retropulsion. Posterior elements otherwise appear intact. 2. Chronic vertebral plana fracture at T12 with mild retropulsion and mild central canal stenosis. 3. Chronic biconcave compression fractures L4 and L5. 4. Marked urinary distention of the bladder partially visualized. A&P Assessment and plan 1. Back pain: 2. Thoracic spine fracture: 3. Lumbar vertebral fracture: 4. Cellulitis: 5. Bilateral lower extremity edema: Plan: Patient will be admitted to [facility] for treatment of cellulitis lower extremity edema and further workup for her back pain. Cellulitis: Patient with allergies to amoxicillin and Keflex has started vancomycin in the emergency room. Lower extremity edema. Patient with cardiac history on aspirin lisinopril metoprolol and pravastatin. Clinically could be CHF or from lack of mobility since her back has been hurting for 1 to 2 months. Will order echocardiogram Back pain with multiple thoracic and lumbar fractures noted. Questionable which is or if any are new and could be treated. Consult placed to Dr. Magno Rios. He advised to order MRI of thoracic and lumbar spine which have been ordered. He will consult after these have been completed Consult placed for penitentiary placement probably initially as a skilled facility but will require permanent placement. Per the dqrlojyx-et-vet the patient has a sister in [place] that is the DPOA I plan to call her today. PDMP PDMP Reviewed: Not Reviewed Attestations Medical Necessity Statement*: Patient with acute cellulitis leg edema and acute on chronic back pain. Patient will require a 2 midnight stay for the treatment of active infection workup and treatment for the edema and same with back pain. Coding Level of Care Code Acute Code for g Fwd Diagnoses Back pain M54.9 Thoracic spine fracture S22.009A Lumbar vertebral fracture S32.009A Cellulitis L03.90 Bilateral lower extremity edema R60.0
[2024-10-15] MEDS: dextrose 5%-sod chloride 0.9% 1,000 ML 75 ML IV (17:23)
[2024-10-15 17:33] LABS: Troponin 5 6HR 30.62 ng/L (0-10)
[2024-10-15 17:46] LABS: Troponin 5 6HR Delta -0.38 ng/L (0-12)
--- NOTE | 2024-10-15 18:37 | P.MISC_ITS ---
Miscellaneous Note Purpose of Documentation: DPOA Patient's Sister Pooja Baptiste reportedly is the patient's DURABLE POWER OF CABLE SYSTEMS INSTALLER. Pooja and her gvziml-ix-dfu both report similar cognitive deficits. Patient had a benign brain tumor removed in 2006 and reportedly the patient has been different and not the same ever since. In the last few months the patient has gotten significantly worse she is unable to cook for herself and in the last few weeks unable to get out of her chair or out of her bed. Patient's sister and aeknla-pp-dpv have been talking to her primary care doctor about correction placement. The patient shows a lack of capacity to make medical decisions due to lack of understanding. Ms. Baptiste will look for her DPOA paperwork otherwise we will contact the office of Dr. Richter to see if he has a copy. The patient's family has her best interest in mind and would like to see her out of pain. Thus if surgery/procedure is recommended they would be agreeable to said procedure Pooja Baptiste phone number is [phone].
--- NOTE | 2024-10-15 18:45 | ECG_ITS ---
[address] [facility] Date: 2024-10-15 Pat Name: Lauren Fisher Department: Room: 259 Gender: Female Health Information Provider: : 1945 Requested By: Tru Gomez Order Number: [id number] Yady MD: Derick Bahena M.D. Measurements Intervals [place] Rate: 81 P: 2 CT: 187 QRS: -20 QRSD: 99 T: -25 QT: 371 QTc: 433 Interpretive Statements SINUS RHYTHM LOW QRS VOLTAGE IN PRECORDIAL LEADS [QRS DEFLECTION < 1.0 mV IN CHEST LEADS] POSSIBLE ANTERIOR MYOCARDIAL INFARCTION , PROBABLY OLD [30 ms Q WAVE IN V3/V4, OR R < 0.2 mV IN V4] Compared to ECG 10/15/2024 14:40:37 Low QRS voltage now present First degree AV block no longer present Myocardial infarct finding still present Electronically Signed On 10-16-2024 22:52:22 CDT by Derick Bahena M.D. [id number] [id number]
[2024-10-16] VITALS (7 sets, daily range): BP systolic 131–171; BP diastolic 67–86; PULSE 68–90; RESP 14–18; TEMP 36.6–37; O2SAT 90–98
[2024-10-16] MEDS: HYDROcodone-acetaminophen 5-325 mg Tablet 1 TAB PO ×3 (05:07→15:52)
[2024-10-16] MEDS: dextrose 5%-sod chloride 0.9% 1,000 ML 75 ML IV (05:08)
[2024-10-16 05:37] LABS: Anion Gap 14.0 (5-19); Blood Urea Nitrogen 10 mg/dL (8-23); Calcium 8.0 mg/dL (8.5-10.5); Carbon Dioxide 25 mmol/L (22-29); Chloride 101 mmol/L (98-107); Creatinine Clr Calc Pharmacy 53.6045; Glucose 95 mg/dL (65-115); Magnesium 2.1 mg/dL (1.7-2.3); Osmolality Calculated 281 mOsm/kg (285-295); Potassium 4.0 mmol/L (3.5-5.1); Sodium 136 mmol/L (136-145)
--- NOTE | 2024-10-16 08:00 | MRR_ITS ---
PROCEDURE INFORMATION: Exam: MR Thoracic Spine Without Contrast Exam date and time: 10/16/2024 5:32 PM Age: 78 years old Clinical indication: Pain in thoracic spine; Additional info: Back pain kh- spoke wSri Wilson Changed to w/o TECHNIQUE: Imaging protocol: Magnetic resonance imaging of the thoracic spine without contrast. COMPARISON: CT lumbar spine wo con* [id number] 10/15/2024 10:20 AM FINDINGS: Bones/joints: Normal spinal alignment with increased thoracic kyphosis. There is a subacute severe compression fracture of T12 causing about 80% central vertebral body height loss accompanied by slight retropulsion of bone into the spinal canal about 5 mm that contacts and slightly indents the ventral spinal cord. There is some residual bone marrow edema within the T12 vertebral body anteriorly and posteriorly. This is also causing mild spinal stenosis reducing approximate midline spinal canal diameter to about 9-10 mm maximum. Otherwise no significant spinal or foramina stenosis. Mild chronic wedge compressions of T7 and T6 are noted with the beginnings of acquired arthrodesis of the vertebral bodies. Spinal cord: See Bones/joints finding. Soft tissues: Unremarkable. MR/MR thoracic spin wo con* [id number] IMPRESSION: 1. Subacute severe compression fracture of T12 with retropulsion of bone into the canal and mild spinal stenosis and subtle cord compression. 2. Note that there is a separate report for MRI lumbar spine that was performed today.
--- NOTE | 2024-10-16 08:00 | MRR_ITS ---
PROCEDURE INFORMATION: Exam: MR Lumbar Spine Without Contrast Exam date and time: 10/16/2024 5:44 PM Age: 78 years old Clinical indication: Low back pain; Additional info: Back pain/fracture. Chronic pain, no fall per PT TECHNIQUE: Imaging protocol: Magnetic resonance imaging of the lumbar spine without contrast. COMPARISON: CT lumbar spine wo con* [id number] 10/15/2024 10:20 AM FINDINGS: Bones/joints: Subacute appearing distraction fracture of what may have been a severe compression of L1 is noted that mirrors the appearance of the CT scan from 10/15/2024. No retropulsion of bone into the spinal canal. Remaining lumbar vertebra are grossly intact with chronic appearing collapse of superior endplates of L4 and L5 causing approximately 50% vertebral body height loss. Spinal cord: Visualized cord, conus medullaris and cauda equina are unremarkable without compression. L1-L2: No significant disc bulge or herniation. No severe spinal canal stenosis. No significant neural foraminal narrowing. L2-L3: No significant disc bulge or herniation. No severe spinal canal stenosis. No significant neural foraminal narrowing. L3-L4: Normal disc height. Circumferential 3 mm disc bulge. Onss-iy-tdxurraq facet arthrosis with ghkkynsh-wz-djdgof ligamentum flavum hypertrophy. Mxnm-vn-ajkzmrvs central spinal stenosis and lateral recess stenosis. Moderate bilateral foramina stenosis. L4-L5: Circumferential 2-3 mm disc bulge. Mild to moderate facet arthrosis with inabtgbd-yz-qegpfd ligamentum flavum hypertrophy. Mild central spinal and lateral recess stenosis. Moderate bilateral foramina stenosis. L5-S1: Normal disc height. 2 mm disc bulge. Adequately patent canal. Mild bilateral foraminal narrowing due to facet arthrosis. Soft tissues: Unremarkable. MR/MR lumbar spine wo con* [id number] IMPRESSION: 1. Subacute appearing distracted endplate fracture at L1 without retropulsion of bone into the spinal canal. 2. Multilevel lumbar spondylosis with spinal stenosis identifiable at L3-L4 and L4-L5. 3. Note that there is a separate report for MRI of the thoracic spine today.
[2024-10-16] MEDS: metoprolol succinate ER (24 HR) 50 mg Tablet PO (09:35)
[2024-10-16] MEDS: ATORVASTATIN 10 MG TABLET PO (09:35)
--- NOTE | 2024-10-16 10:02 | PC.CHAP ---
Pastoral Care Encounter/Spiritual Assessment Type of Contact [] Declined processor grain visit [] Patient/Family/Request visit [] Outpatient visit [] Follow-up visit [] Physician referral [] Code/Alert [x] Routine visit [] Staff referral [] Actively dying [] Patient sleeping [x] Family support [] [] Out of room [] Palliative care [] [] Receiving care in room [] Pre-surgical visit [] Trauma [] Long length of stay [] ICU visit [] Other: Relational/Emotional Strength [x] Patient feels connected with others/family/visitors/staff [] Distress [] Loneliness/isolation [] Abandonment Spirituality of Patient [x] Person of Jordyn [] Attends Religion of their Jordyn [x] Believes in Prayer [] Reads Bible or Restorationism materials [] There are Spiritual issues to be addressed Cement Breaker Interventions [x] Prayer [x] Active listening [] Non-anxious presence [x] Spiritual/emotional support [] Crisis/trauma care [] Spiritual counseling [] Bereavement support [] Provided bereavement packet [] Provided Bible/devotional materials [] Provided toy/stuffed animal, coloring book to patient or family member [] Provided Communion [] Anointing/Delevan [] Salvation [x] Completed spiritual assessment [] Other: Impact on Illness or Injury [] Angry [] Fearful [] Anxious [] Often cries [] Exhaustion [] Unable to work [] Unable to attend jewish [] Unable to walk/stand [] Unable to read [] Unable to drive [] Unable to eat/drink [] Unable to sleep [] Unable to be with family [] Patient intubated [] Other: Summary Time spent with patient 5 min
--- NOTE | 2024-10-16 10:42 | PC.SOCIAL ---
IMM Update pg 2 of IMM Updated and reviewed w/ patient and patients sister in law. Copy provided and copy and dated initialed and placed in chart.
--- NOTE | 2024-10-16 11:47 | P.PN_ITS ---
Subjective 2 Subjective: Patient still having pain. Discussed with orthopedic surgery and he would not be able to do surgery until next Saturday. Will start NSAID and Cymbalta for chronic back pain. MRI of thoracic and lumbar spine scheduled for 1230 Vitals/I&O/Wt Last Vital Signs Temp 98.0 F 10/16/24 08:00 Pulse 90 10/16/24 08:00 Resp 16 10/16/24 08:00 BP 166/86 10/16/24 08:00 Pulse Ox 90 10/16/24 08:00 O2 Del Method Room Air 10/16/24 08:00 10/15/24 10/16/24 10/16/24 22:59 06:59 14:59 Intake Total 881.25 / 881.25 Output Total 450 / 450 Balance -450 / -450 881.25 / 431.25 Weight last 48 hrs Weight 76.204 kg Weight 74.48 kg Physical Exam 2 Narrative: Loops heart regular rate and rhythm normal S1-S2 without murmurs clicks gallops rubs Lungs clear to auscultation without wheezes rales or rhonchi Abdomen soft mild tenderness nonspecific normal active bowel sounds no hepatosplenomegaly Extremities bilateral extremities with anterior erythema and edema. This is markedly improved just overnight she has some bullous formations on the anterior of both shins-these are improved as well Data 10/15/24 10:36 10/16/24 05:00 A&P Assessment and plan 1. Cellulitis: 2. Bilateral lower extremity edema: 3. Acute midline low back pain without sciatica: 4. Other closed fracture of twelfth thoracic vertebra with routine healing, subsequent encounter: 5. Other closed fracture of first lumbar vertebra, initial encounter: Plan: Cellulitis: Continue vancomycin. Patient is markedly improved. Initially considered echocardiogram for leg edema but since his markedly improved with treatment of cellulitis we will hold off. Back pain with multiple thoracic and lumbar fractures noted. Questionable if any are new and could be treated. Consult placed to Dr. Magno Rios. Awaiting MRI of thoracic and lumbar spine. Dr. Rios advises would not be able to do any intervention over holiday weekend. Will treat acute on chronic back pain with Celebrex and Cymbalta in addition to her hydrocodone. Disposition would be skilled care at a prison and then to reside at a prison on Medicaid. Awaiting DPOA paperwork from Sister Pooja Baptiste PDMP PDMP Reviewed: Not Reviewed Attestations 2 Medical Necessity Statement*: Patient with acute cellulitis leg edema and acute on chronic back pain. Patient will require a 2 midnight stay for the treatment of active infection workup and treatment for the edema and same with back pain. Coding Level of Care Code Acute Code for [facility] Fwd Diagnoses Cellulitis L03.90 Bilateral lower extremity edema R60.0 Acute midline low back pain without sciatica M54.50 Back pain location: low back pain Chronicity: acute Back pain laterality: midline Sciatica presence: without sciatica Other closed fracture of twelfth thoracic vertebra with routine healing, subsequent encounter S22.088D Encounter type: subsequent encounter Thoracic vertebra fracture level: T12 Fracture type: closed Fracture morphology: other fracture Fracture healing: with routine healing Other closed fracture of first lumbar vertebra, initial encounter S32.018A Encounter type: initial encounter Lumbar vertebra fracture level: L1 Fracture type: closed Fracture morphology: other fracture
--- NOTE | 2024-10-16 12:50 | PM.CONSULT ---
Providers/Reason For Consult Consulting Physician/Specialty*: Hospitalist Reason for Consult*: Compression fractures Attending Physician: Tru Gomez DO Primary Care Provider: Mino Richter MD History of Present Illness History of Present Illness Lauren Fisher is a 78 year old female with history of back pain. [place] a pop on August 21 and her back bending over. CT scan shows T12 and L1 fractures. Review of Systems Const: Denies: fever(s) or chills Eyes: Denies: change in vision ENMT: Denies: throat pain or nasal congestion Card: Denies: chest pain or palpitations Resp: Denies: dyspnea or productive cough GI: Denies: abdominal pain, nausea, vomiting or change in stool character : Denies: dysuria Musc: Reports: back pain, extremity pain and extremity swelling Skin/Breast: Denies: rash or lesions Neuro: Denies: headache(s) or dizziness Psych: Denies: anxiety or depression [place]/Lymph: Denies: easy bruising or easy bleeding Medications/Allergies Home Medications ?Medication ?Instructions ?Recorded ?Confirmed ?Last Taken ?Type aspirin 81 mg tablet,delayed 81 mg PO DAILY 11/16/19 10/15/24 10/14/24 History release (Adult Aspirin Regimen) lisinopril 40 mg tablet 40 mg PO DAILY 11/16/19 10/15/24 10/14/24 History metoprolol succinate 50 mg 50 mg PO DAILY 11/16/19 10/15/24 10/14/24 History tablet,extended release 24 hr pravastatin 20 mg tablet 20 mg PO DAILY 11/16/19 10/15/24 10/14/24 History levothyroxine 75 mcg tablet 75 mcg PO QAM 08/10/24 10/15/24 10/14/24 History Allergies Allergy/AdvReac Type Severity Reaction Status Date / Time amoxicillin Allergy ALGY-Hives Verified 08/14/24 09:28 cephalexin Allergy Unknown Verified 08/14/24 09:28 Current Medications Generic Name Dose Route Start Last Admin Trade Name Freq PRN Reason Stop Dose Admin Hydrocodone Bitart/Acetaminophen 1 tab 10/15/24 16:58 10/16/24 09:36 Hydrocodone-Acetaminophen 5-325 Mg Tablet PO 1 tab Q4H PRN Administration MODERATE TO SEVERE PAIN Atorvastatin Calcium 10 mg 10/16/24 09:00 10/16/24 09:35 Atorvastatin 10 Mg Tablet PO 10 mg DAILY ANISH Administration Dextrose/Sodium Chloride 1,000 mls @ 75 mls/hr 10/15/24 16:58 10/16/24 05:08 Dextrose 5%-Sod Chloride 0.9% IV 75 mls/hr .[id number] ANISH Administration Ketorolac Tromethamine 15 mg 10/16/24 06:30 10/16/24 12:39 Ketorolac 30 Mg/Ml Inj IVP 10/21/24 06:29 15 mg Q6H ANISH Administration Levothyroxine Sodium 75 mcg 10/16/24 06:00 10/16/24 05:07 Levothyroxine 75 Mcg Tablet PO 75 mcg QAM ANISH Administration Lisinopril 40 mg 10/16/24 09:00 10/16/24 09:35 Lisinopril 20 Mg Tablet PO 40 mg DAILY ANISH Administration Metoprolol Succinate 50 mg 10/16/24 09:00 10/16/24 09:35 Metoprolol Succinate Er (24 Hr) 50 Mg Tablet PO 50 mg DAILY ANISH Administration PFSH Acute PFSH: Medical History (Updated 10/16/24 @ 11:52 by Tru Gomez DO) Dyslipidemia History of hypothyroidism History of hypertension Surgical History Hx of hysterectomy Hx of eye surgery Hx of heart artery stent x 2 in 2006 Social History Smoking and tobacco/nicotine status: never used tobacco/nicotine Vitals/I&O/Wt Last Vital Signs Temp 98.3 F 10/16/24 12:42 Pulse 73 10/16/24 12:42 Resp 16 10/16/24 12:42 BP 157/76 10/16/24 12:42 Pulse Ox 95 10/16/24 12:42 O2 Del Method Room Air 10/16/24 12:42 10/15/24 10/16/24 10/16/24 22:59 06:59 14:59 Intake Total 881.25 / 881.25 Output Total 450 / 450 Balance -450 / -450 881.25 / 431.25 Weight last 48 hrs Weight 168 lb Weight 164 lb 3.2 oz Physical Exam Narrative: Alert and oriented x 3 Head is normocephalic atraumatic Respirations are intact Cellulitis on lower extremities 5/5 strength in bilateral upper and lower extremities Sensation intact in all extremities Having pain in back laying in bed. Data 10/15/24 10:36 10/16/24 05:00 A&P Assessment and plan 1. Other closed fracture of first lumbar vertebra, initial encounter: At this time awaiting the MRI scan to determine the acuity of the fractures. Discussed with the patient performing a kyphoplasty. Will await MRI PDMP PDMP Reviewed: Not Reviewed Consult Attestations Medical Necessity Statement: Per primary service Coding Level of Care Code Acute Code for [facility] Fwd Diagnoses Other closed fracture of first lumbar vertebra, initial encounter S32.018A Encounter type: initial encounter Lumbar vertebra fracture level: L1 Fracture type: closed Fracture morphology: other fracture
[2024-10-16 17:09] LABS: Glucose Urine UA Negative (Normal); Nitrate Urine Negative (Negative); Specific Gravity, Urine 1.012 (1.005-1.030)
[2024-10-16 17:12] LABS: Add Urine Microscopic? YES
[2024-10-16] MEDS: LORazepam 1 MG/0.5 ML injection 0.5 MG IVP (17:15)
[2024-10-16] MEDS: morphine 4 mg/mL SDV 1 mL 2 MG IVP (17:16)
[2024-10-16 17:29] LABS: UA Slide Review UA Slide Review Perf
[2024-10-17] VITALS (8 sets, daily range): BP systolic 122–173; BP diastolic 72–80; PULSE 64–77; RESP 16–19; TEMP 36.4–37; O2SAT 90–97
--- NOTE | 2024-10-17 05:54 | PC.NURSE ---
Patient refused 0600 Levothyroxine. Stated Leave me alone i hurt to bad. This nurse then asked if patient would like something for pain. Patient stated No not this morning. This nurse explained importance of levothyroxine but patient still refused. Patient has had no urine output for entire shift. This nurse and Irena RENDON have attempted to bladder scan multiple times and patient refused. Patient is currently sitting on side of bed refusing to lay back down.
[2024-10-17] MEDS: HYDROcodone-acetaminophen 5-325 mg Tablet 1 TAB PO ×3 (06:21→20:57)
--- NOTE | 2024-10-17 06:39 | PC.NURSE ---
Patient took pain medication and synthroid at 0625. Patient was also bladder scan and has 425ml in bladder. This nurse contacted Physician Dr. Morejon about retention.
[2024-10-17] MEDS: ATORVASTATIN 10 MG TABLET PO (08:45)
[2024-10-17] MEDS: metoprolol succinate ER (24 HR) 50 mg Tablet PO (08:45)
--- NOTE | 2024-10-17 09:41 | P.PN_ITS ---
Subjective 2 Subjective: Patient seen this morning. Eating lunch. Vitals/I&O/Wt Last Vital Signs Temp 97.8 F 10/17/24 07:45 Pulse 66 10/17/24 07:45 Resp 16 10/17/24 07:45 BP 165/74 10/17/24 07:45 Pulse Ox 92 10/17/24 07:45 O2 Del Method Room Air 10/17/24 07:45 10/16/24 10/17/24 10/17/24 22:59 06:59 14:59 Intake Total 660 / 660 Balance 660 / 660 Weight last 48 hrs Weight 171 lb 8 oz Weight 168 lb Weight 164 lb 3.2 oz Physical Exam 2 Narrative: Patient in bed complaining of back pain. Discussed with her possibly doing kyphoplasty Data 10/15/24 10:36 10/16/24 05:00 A&P Assessment and plan 1. Other closed fracture of twelfth thoracic vertebra with routine healing, subsequent encounter: Patient MRIs reviewed we could possibly do a kyphoplasty at T12 and L1. Plan to be to do this on Saturday if she consents to it. PDMP PDMP Reviewed: Not Reviewed Attestations 2 Medical Necessity Statement*: Per primary service Coding Level of Care Code Acute Code for [facility] Fwd Diagnoses Other closed fracture of twelfth thoracic vertebra with routine healing, subsequent encounter S22.088D Encounter type: subsequent encounter Thoracic vertebra fracture level: T12 Fracture type: closed Fracture morphology: other fracture Fracture healing: with routine healing
--- NOTE | 2024-10-17 11:30 | PM.PN ---
Subjective Subjective: Pain is better at rest. But still severe with activity. Questionable spasm with activity Vitals/I&O/Wt Last Vital Signs Temp 97.8 F 10/17/24 07:45 Pulse 66 10/17/24 07:45 Resp 16 10/17/24 07:45 BP 165/74 10/17/24 07:45 Pulse Ox 92 10/17/24 07:45 O2 Del Method Room Air 10/17/24 07:45 10/16/24 10/17/24 10/17/24 22:59 06:59 14:59 Intake Total 660 / 660 360 / 360 Balance 660 / 660 360 / 360 Weight last 48 hrs Weight 77.791 kg Weight 76.204 kg Weight 74.48 kg Physical Exam Narrative: heart regular rate and rhythm normal S1-S2 without murmurs clicks gallops rubs Lungs clear to auscultation without wheezes rales or rhonchi Abdomen soft mild tenderness nonspecific normal active bowel sounds no hepatosplenomegaly Extremities bilateral extremities with minimal erythema and much less edema. The left leg is more edematous than the right. Data 10/15/24 10:36 10/16/24 05:00 A&P Assessment and plan 1. Cellulitis: Will change to oral Zyvox on discharge 2. Bilateral lower extremity edema: Markedly improved 3. Acute midline low back pain without sciatica: 4. Other closed fracture of twelfth thoracic vertebra with routine healing, subsequent encounter: 5. Other closed fracture of first lumbar vertebra, initial encounter: Plan: - Greatly appreciate assistance of Dr. Rios. We discussed case today. He recommends attempt at kyphoplasty for T12 and L1. - Best course of action is probably to continue antibiotics for a few more days. He would be able to do the surgery on Saturday. He would recommend outpatient follow-up in the office to discuss with the patient and family on Saturday. They can come to the office at any time and he will work them in. - Will add Flexeril low-dose for possible back spasms - Plan to discharge tomorrow to [facility] with outpatient appointment on Saturday followed by surgery on Saturday -Reviewed power of carpenter helper. This is not for medical decision making. At this time with the patient improved cognitively I think the patient can make her own decisions regarding therapy with the assistance of family PDMP PDMP Reviewed: Not Reviewed Attestations Medical Necessity Statement*: Patient with acute cellulitis leg edema and acute on chronic back pain. Patient will require a 2 midnight stay for the treatment of active infection workup and treatment for the edema and same with back pain. Coding Level of Care Code Acute Code for [facility] Fwd Diagnoses Cellulitis L03.90 Bilateral lower extremity edema R60.0 Acute midline low back pain without sciatica M54.50 Back pain laterality: midline Back pain location: low back pain Chronicity: acute Sciatica presence: without sciatica Other closed fracture of twelfth thoracic vertebra with routine healing, subsequent encounter S22.088D Encounter type: subsequent encounter Fracture healing: with routine healing Fracture morphology: other fracture Fracture type: closed Thoracic vertebra fracture level: T12 Other closed fracture of first lumbar vertebra, initial encounter S32.018A Encounter type: initial encounter Fracture morphology: other fracture Fracture type: closed Lumbar vertebra fracture level: L1
[2024-10-18 03:58] VITALS: BP 165/80; PULSE 75; RESP 19; TEMP 36.8; O2SAT 94
[2024-10-18 04:34] LABS: Anion Gap 13.3 (5-19); Blood Urea Nitrogen 18 mg/dL (8-23); Calcium 8.1 mg/dL (8.5-10.5); Carbon Dioxide 27 mmol/L (22-29); Chloride 98 mmol/L (98-107); Creatinine Clr Calc Pharmacy 54.0380; Glucose 94 mg/dL (65-115); Osmolality Calculated 280 mOsm/kg (285-295); Potassium 4.3 mmol/L (3.5-5.1); Sodium 134 mmol/L (136-145)
[2024-10-18] MEDS: HYDROcodone-acetaminophen 5-325 mg Tablet 1 TAB PO ×3 (06:43→16:55)
[2024-10-18 07:19] VITALS: BP 195/93; PULSE 64; RESP 19; TEMP 36.9; O2SAT 95
[2024-10-18] MEDS: ATORVASTATIN 10 MG TABLET PO (08:34)
[2024-10-18] MEDS: metoprolol succinate ER (24 HR) 50 mg Tablet PO (08:34)
[2024-10-18 11:10] VITALS: BP 162/81; PULSE 70; RESP 18; TEMP 36.8; O2SAT 94
--- NOTE | 2024-10-18 11:31 | P.DS_ITS ---
Discharge Providers Date of Admission: 10/15/24 16:58 Date of Discharge: October 18, 2024 Attending Provider at Admission: Tru Gomez DO Attending Provider at Discharge: Tru Gomez DO Primary Care Provider: Mino Richter MD Diagnoses at Discharge Discharge Diagnosis 1. Cellulitis: 2. Bilateral lower extremity edema: 3. Acute midline low back pain without sciatica: 4. Other closed fracture of twelfth thoracic vertebra with routine healing, subsequent encounter: 5. Other closed fracture of first lumbar vertebra, initial encounter: Reason for Visit Reason for Visit: low back pain Brief History: Lauren Fisher is a 78 year old female came to the ER today for reports of low back pain. Reportedly approximately 2 months ago patient heard a pop in her back and has had pain ever since. They do both report that there has been increased swelling in her legs for this past 2 months. Both lower extremities are getting red. She has been unable to get out of her chair and unable to care for herself. Review of her chart shows that the patient did come to the office but with her primary care physician on 08/10/2024 with low back pain. And possibly came on 08/14/2024. On 08/13/2024 I do see that a plain film of the lumbar spine showed nondisplaced compression deformities of T7 T9 T12 L4 and L5 and the L1 fracture that we have identified this admission is acute Hospital Course Hospital Course Patient was admitted due to acute back pain and inability to take care of herself. She was placed on pain medication. For the cellulitis the plan was to treat with antibiotics however these did not get started. Interestingly the patient's swelling and erythema of the lower extremities got better without treatment. However to be complete I will start Zyvox for short course as she is allergic to penicillins and CPN's. Consultation with for back pain. MRI of the thoracic and lumbar spine were obtained. Orthopedic conclusion recommends vertebroplasty to T12 and L1. Follow-up in the office on Saturday as a working. And as long as patient and sister agree he would perform these procedures on Saturday. I called Sister Pooja Baptiste and updated her on the plan. All questions answered. Physical Exam Narrative: heart regular rate and rhythm normal S1-S2 without murmurs clicks gallops rubs Lungs clear to auscultation without wheezes rales or rhonchi Abdomen soft mild tenderness nonspecific normal active bowel sounds no hepatosplenomegaly Extremities bilateral extremities with minimal erythema and minimal edema. Discharge Data Studies Completed and Pending Completed Studies During Hospitalization Category Date Time Status CT lumbar spine wo con* [id number] Stat Cat Scan 10/15/24 10:02 Completed XR chest 1V portable [id number] Stat Exams 10/15/24 10:02 Completed MR lumbar spine wo con* [id number] Routine MRI 10/16/24 08:00 Completed MR thoracic spin wo con* [id number] Routine MRI 10/16/24 08:00 Completed US venous duplex lower extremity bilat [CV venous Ultrasound 10/15/24 10:02 [place] [id number]] Stat Radiology Impressions Chest X-Ray 10/15/24 10:02 IMPRESSION: 1. Mild cardiac enlargement. No acute process. Lumbar Spine CT 10/15/24 10:02 IMPRESSION: 1. Distraction fracture L1 vertebral body with widening of the endplates measuring 13 mm anteriorly. Fracture extends to the pedicles. No significant retropulsion. Posterior elements otherwise appear intact. 2. Chronic vertebral plana fracture at T12 with mild retropulsion and mild central canal stenosis. 3. Chronic biconcave compression fractures L4 and L5. 4. Marked urinary distention of the bladder partially visualized. Lumbar Spine MRI 10/16/24 08:00 IMPRESSION: 1. Subacute appearing distracted endplate fracture at L1 without retropulsion of bone into the spinal canal. 2. Multilevel lumbar spondylosis with spinal stenosis identifiable at L3-L4 and L4-L5. 3. Note that there is a separate report for MRI of the thoracic spine today. Thoracic Spine MRI 10/16/24 08:00 IMPRESSION: 1. Subacute severe compression fracture of T12 with retropulsion of bone into the canal and mild spinal stenosis and subtle cord compression. 2. Note that there is a separate report for MRI lumbar spine that was performed today. ADDENDUM: 10/16/24 1908 THIS REPORT CONTAINS FINDINGS THAT MAY BE CRITICAL TO PATIENT CARE. The findings were verbally communicated via telephone conference with Dr. Morejon at 7:06 PM CDT on 10/16/2024. The findings were acknowledged and understood. Laboratory Results WBC 6.13 10^3/uL (3.29-11.43) 10/15/24 10:36 RBC 4.74 10^6/uL (3.85-5.65) 10/15/24 10:36 Hgb 14.40 g/dL (11.27-16.99) 10/15/24 10:36 Hct 43.3 % (36-47) 10/15/24 10:36 MCV 91.4 fl (85-98) 10/15/24 10:36 MCH 30.4 pg (27-33) 10/15/24 10:36 MCHC 33.3 g/dL (30-55) 10/15/24 10:36 RDW 14.5 % (12.1-15.1) 10/15/24 10:36 Plt Count 271 10^3/cmm (157-399) 10/15/24 10:36 MPV 8.2 fL (7.4-10.4) 10/15/24 10:36 Neut % (Auto) 77.4 % 10/15/24 10:36 Lymph % (Auto) 13.5 % 10/15/24 10:36 Brantley % (Auto) 7.3 % 10/15/24 10:36 Eos % (Auto) 0.3 % 10/15/24 10:36 Baso % (Auto) 0.8 % 10/15/24 10:36 Neut # (Auto) 4.74 10^3/uL (1.8-7.7) 10/15/24 10:36 Lymph # (Auto) 0.8 10^3/uL (0.8-4.8) 10/15/24 10:36 Brantley # (Auto) 0.5 10^3/uL (0.2-0.9) 10/15/24 10:36 Eos # (Auto) 0.0 10^3/uL (0.0-0.8) 10/15/24 10:36 Baso # (Auto) 0.1 10^3/uL (0.0-0.1) 10/15/24 10:36 Nucleated RBC % (auto) 0 % 10/15/24 10:36 Nucleated RBCs # 0.0 /100WBC 10/15/24 10:36 Sodium 134 mmol/L (136-145) L 10/18/24 02:55 Potassium 4.3 mmol/L (3.5-5.1) 10/18/24 02:55 Chloride 98 mmol/L (98-107) 10/18/24 02:55 Carbon Dioxide 27 mmol/L (22-29) 10/18/24 02:55 Anion Gap 13.3 (5-19) 10/18/24 02:55 BUN 18 mg/dL (8-23) 10/18/24 02:55 Creatinine 0.6 mg/dL (0.5-0.9) 10/18/24 02:55 GFR Calculation Not Reportable 10/18/24 02:55 Glucose 94 mg/dL (65-115) 10/18/24 02:55 Calculated Osmolality 280 mOsm/kg (285-295) L 10/18/24 02:55 Calcium 8.1 mg/dL (8.5-10.5) L 10/18/24 02:55 Magnesium 2.1 mg/dL (1.7-2.3) 10/16/24 05:00 Total Bilirubin 0.7 mg/dL (0.15-1.2) 10/15/24 10:36 AST 44 U/L (0-32) H 10/15/24 10:36 ALT 23 U/L (0-33) 10/15/24 10:36 Alkaline Phosphatase 113 U/L (35-105) H 10/15/24 10:36 Troponin T Baseline 31 ng/L (0-10) H 10/15/24 10:36 Troponin T 120 Minute 31.22 ng/L (0-10) H 10/15/24 12:29 Delta Troponin T 0.22 ABS# (0-10) 10/15/24 12:29 Troponin T Hi Sens 6Hr 30.62 ng/L (0-10) H 10/15/24 17:01 Troponin T Hi Sens 6Hr Delta -0.38 ng/L (0-12) L 10/15/24 17:01 C-Reactive Protein 21.3 mg/L (0.0-4.9) H 10/15/24 10:36 NT-Pro-B Natriuret Pep 483 pg/mL (0-450) H 10/15/24 10:36 Total Protein 5.7 g/dL (6.6-8.7) L 10/15/24 10:36 Albumin 3.8 g/dL (3.5-5.2) 10/15/24 10:36 Globulin 1.9 g/dL (1.3-4.6) 10/15/24 10:36 Urine Color Yellow (Yellow) 10/16/24 17:00 Urine Appearance Cloudy (CLEAR) A 10/16/24 17:00 Urine pH 8.0 (5-7) A 10/16/24 17:00 Ur Specific [place] 1.012 (1.005-1.030) 10/16/24 17:00 Urine Protein Negative (Negative) 10/16/24 17:00 Urine Glucose (UA) Negative (Normal) 10/16/24 17:00 Urine Ketones Negative (Negative) 10/16/24 17:00 Urine Blood Negative (Negative) 10/16/24 17:00 Urine Nitrate Negative (Negative) 10/16/24 17:00 Urine Bilirubin Negative (Negative) 10/16/24 17:00 Urine Urobilinogen 1.0 mg/dL (Negative) 10/16/24 17:00 Ur Leukocyte Esterase Negative (Negative) 10/16/24 17:00 Urine RBC 0-2 /hpf (0-2) 10/16/24 17:00 Urine WBC 0-5 /hpf (0-5) 10/16/24 17:00 Ur Squamous Epith Cells 0-5 /hpf (0-5) 10/16/24 17:00 Amorphous Sediment Not Reportable 10/16/24 17:00 Urine Bacteria None seen /hpf (NONE) 10/16/24 17:00 Hyaline Casts 0.40 /lpf 10/16/24 17:00 Vitals Last Vital Signs Temp 98.2 F 10/18/24 11:10 Pulse 70 10/18/24 11:10 Resp 18 10/18/24 11:10 BP 162/81 10/18/24 11:10 Pulse Ox 94 10/18/24 11:10 O2 Del Method Room Air 10/18/24 11:10 Discharge Plan Discharge Patient Disposition: Home Condition: Stable Prescriptions: New hydrocodone-acetaminophen 5-325 mg Tablet 1 tab PO Q4H PRN (Reason: Moderate To Severe Pain) Qty: 30 0RF duloxetine 30 mg Capsule,Delayed Release(Dr/Ec) 30 mg PO DAILY Qty: 30 0RF linezolid [Zyvox] 600 mg tablet 600 mg PO BID Qty: 10 0RF Continued lisinopril 40 mg tablet 40 mg PO DAILY metoprolol succinate 50 mg tablet extended release 24 hr 50 mg PO DAILY pravastatin 20 mg tablet 20 mg PO DAILY levothyroxine 75 mcg tablet 75 mcg PO QAM Discontinued aspirin [Adult Aspirin Regimen] 81 mg tablet,delayed release (DR/EC) 81 mg PO DAILY Foreign Legal Consultant OK for DC: Hospitalist Discharge Order = DC NOW: Discharge Order (Routine); Ordered 10/18/24 Ordered By: Tru Gomez Referrals: [facility] [place] [facility] [place]] Magno Rios DO [Physician, Orthopedics] - 10/20/24 12:45 pm Referral Note: To discuss kyphoplasty procedure Mino Richter MD [Primary Care Provider, Family Practice] Discharge Diet: Cardiac and Low Cholesterol Discharge Activity: Use walker/crutches as instructed, Wheelchair as instructed and As per PT/OT instructions Patient Instructions: Hydrocodone/Acetaminophen (By mouth), Linezolid (By mouth), Duloxetine (By mouth), Cellulitis (GEN), Opioid Safety, Patient Portal & Johanny Instructions Discharge Attestations Time Spent in Discharge Care*: greater than 30 min Quality Metrics Clinical Quality Measures [ No reported AMI, CVA or VTE this stay] Coding Level of Care Code Acute Code for Chg Fwd Diagnoses Cellulitis L03.90 Bilateral lower extremity edema R60.0 Acute midline low back pain without sciatica M54.50 Back pain location: low back pain Chronicity: acute Back pain laterality: midline Sciatica presence: without sciatica Other closed fracture of twelfth thoracic vertebra with routine healing, subsequent encounter S22.088D Encounter type: subsequent encounter Thoracic vertebra fracture level: T12 Fracture type: closed Fracture morphology: other fracture Fracture healing: with routine healing Other closed fracture of first lumbar vertebra, initial encounter S32.018A Encounter type: initial encounter Lumbar vertebra fracture level: L1 Fracture type: closed Fracture morphology: other fracture
--- NOTE | 2024-10-18 13:23 | PC.NURSE ---
Per the nurse at [facility], they are unable to take patient today due to their physician not being willing to accept. Nurse from [facility] said she would be in office tomorrow and attempt to see if she could clarify the situation. Dr. Gomez notified.
[2024-10-18 15:57] VITALS: BP 193/90; PULSE 67; RESP 19; TEMP 36.7; O2SAT 94
--- NOTE | 2024-10-18 16:23 | PM.PN ---
Subjective Subjective: Discharge was planned for today I spoke with the patient's sister twice and confirmed with Dr. Decker our plans. Unfortunately the retirement of the physician declined to accept the patient. We may need to keep the patient through Saturday Vitals/I&O/Wt Last Vital Signs Temp 98.0 F 10/18/24 15:57 Pulse 67 10/18/24 15:57 Resp 19 H 10/18/24 15:57 BP 193/90 10/18/24 15:57 Pulse Ox 94 10/18/24 15:57 O2 Del Method Room Air 10/18/24 15:57 10/18/24 10/18/24 10/18/24 06:59 14:59 22:59 Intake Total 480 / 480 Output Total 200 / 200 300 / 300 Balance -200 / 730 480 / 480 -300 / 180 Weight last 48 hrs Weight 77.428 kg Weight 77.791 kg Physical Exam Narrative: heart regular rate and rhythm normal S1-S2 without murmurs clicks gallops rubs Lungs clear to auscultation without wheezes rales or rhonchi Abdomen soft mild tenderness nonspecific normal active bowel sounds no hepatosplenomegaly Extremities bilateral extremities with minimal erythema and minimal edema. Data 10/15/24 10:36 10/18/24 02:55 A&P Assessment and plan 1. Cellulitis: Start oral Zyvox since unable to discharge to retirement 2. Bilateral lower extremity edema: Markedly improved 3. Acute midline low back pain without sciatica: 4. Other closed fracture of twelfth thoracic vertebra with routine healing, subsequent encounter: 5. Other closed fracture of first lumbar vertebra, initial encounter: Plan: Patient was discharged and all paperwork and medications completed. Patient was declined admission by the physician at [facility]. notified and he will call sister instead of a visit. I will notify the sister today. PDMP PDMP Reviewed: Last Reviewed 10/18/24 12:07 EDT by Tru Gomez DO [place] Medical Necessity Statement*: The alf facility physician would not accept patient today that she will need to remain in the hospital since she lives alone and family cannot take her in. Coding Level of Care Code Acute Code for [facility] Fwd Diagnoses Cellulitis L03.90 Bilateral lower extremity edema R60.0 Acute midline low back pain without sciatica M54.50 Back pain laterality: midline Back pain location: low back pain Chronicity: acute Sciatica presence: without sciatica Other closed fracture of twelfth thoracic vertebra with routine healing, subsequent encounter S22.088D Encounter type: subsequent encounter Fracture healing: with routine healing Fracture morphology: other fracture Fracture type: closed Thoracic vertebra fracture level: T12 Other closed fracture of first lumbar vertebra, initial encounter S32.018A Encounter type: initial encounter Fracture morphology: other fracture Fracture type: closed Lumbar vertebra fracture level: L1
[2024-10-18 20:00] VITALS: BP 173/81; PULSE 66; RESP 18; TEMP 36.5; O2SAT 93
[2024-10-18 23:31] VITALS: BP 170/84; PULSE 65; RESP 16; TEMP 36.7; O2SAT 90
[2024-10-19] MEDS: HYDROcodone-acetaminophen 5-325 mg Tablet 1 TAB PO ×2 (00:31→06:11)
[2024-10-19 03:54] VITALS: BP 181/83; PULSE 63; RESP 16; TEMP 36.7; O2SAT 90
[2024-10-19 07:40] VITALS: BP 182/97; PULSE 67; RESP 16; TEMP 36.6; O2SAT 95
[2024-10-19] MEDS: metoprolol succinate ER (24 HR) 50 mg Tablet PO (08:31)
[2024-10-19] MEDS: ATORVASTATIN 10 MG TABLET PO (08:31)
[2024-10-19 11:29] VITALS: BP 151/84; PULSE 66; RESP 17; TEMP 36.4; O2SAT 94
--- NOTE | 2024-10-19 11:52 | P.DS_ITS ---
Discharge Providers Date of Admission: 10/15/24 16:58 Date of Discharge: October 19, 2024 Attending Provider at Admission: Tru Gomez DO Attending Provider at Discharge: Tru Gomez DO Consults: Orthopedics Primary Care Provider: Mino Richter MD Diagnoses at Discharge Discharge Diagnosis 1. Cellulitis: 2. Bilateral lower extremity edema: 3. Acute midline low back pain without sciatica: 4. Other closed fracture of twelfth thoracic vertebra with routine healing, subsequent encounter: 5. Other closed fracture of first lumbar vertebra, initial encounter: Reason for Visit Reason for Visit: low back pain Brief History: Lauren Fisher is a 78 year old female came to the ER today for reports of low back pain. Reportedly approximately 2 months ago patient heard a pop in her back and has had pain ever since. They do both report that there has been increased swelling in her legs for this past 2 months. Both lower extremities are getting red. She has been unable to get out of her chair and unable to care for herself. Review of her chart shows that the patient did come to the office but with her primary care physician on 08/10/2024 with low back pain. And possibly came on 08/14/2024. On 08/13/2024 I do see that a plain film of the lumbar spine showed nondisplaced compression deformities of T7 T9 T12 L4 and L5 and the L1 fracture that we have identified this admission is acute Hospital Course Hospital Course Patient was admitted due to acute back pain and inability to take care of herself. She was placed on pain medication. For the cellulitis the plan was to treat with antibiotics however these did not get started. Interestingly the patient's swelling and erythema of the lower extremities got better without treatment. No further interventions planned Consultation with for back pain. MRI of the thoracic and lumbar spine were obtained. Orthopedic conclusion recommends vertebroplasty to T12 and L1. Follow-up in the office on Saturday as a work in. And as long as patient and sister/DPOA agree he would perform these procedures on Saturday. The patient's niece has been identified as the patient's medical DPOA. Her name is Dagmar Fisher [phone]. I called Sister Pooja Baptiste and updated her on the plan. All questions answered. Pooja's phone number is [phone] Physical Exam Narrative: heart regular rate and rhythm normal S1-S2 without murmurs clicks gallops rubs Lungs clear to auscultation without wheezes rales or rhonchi Abdomen soft mild tenderness nonspecific normal active bowel sounds no hepatosplenomegaly Extremities bilateral extremities with minimal erythema and minimal edema. Discharge Data Studies Completed and Pending Completed Studies During Hospitalization Category Date Time Status CT lumbar spine wo con* [id number] Stat Cat Scan 10/15/24 10:02 Completed XR chest 1V portable [id number] Stat Exams 10/15/24 10:02 Completed MR lumbar spine wo con* [id number] Routine MRI 10/16/24 08:00 Completed MR thoracic spin wo con* [id number] Routine MRI 10/16/24 08:00 Completed US venous duplex lower extremity bilat [CV venous Ultrasound 10/15/24 10:02 [place] [id number]] Stat Radiology Impressions Chest X-Ray 10/15/24 10:02 IMPRESSION: 1. Mild cardiac enlargement. No acute process. Lumbar Spine CT 10/15/24 10:02 IMPRESSION: 1. Distraction fracture L1 vertebral body with widening of the endplates measuring 13 mm anteriorly. Fracture extends to the pedicles. No significant retropulsion. Posterior elements otherwise appear intact. 2. Chronic vertebral plana fracture at T12 with mild retropulsion and mild central canal stenosis. 3. Chronic biconcave compression fractures L4 and L5. 4. Marked urinary distention of the bladder partially visualized. Lumbar Spine MRI 10/16/24 08:00 IMPRESSION: 1. Subacute appearing distracted endplate fracture at L1 without retropulsion of bone into the spinal canal. 2. Multilevel lumbar spondylosis with spinal stenosis identifiable at L3-L4 and L4-L5. 3. Note that there is a separate report for MRI of the thoracic spine today. Thoracic Spine MRI 10/16/24 08:00 IMPRESSION: 1. Subacute severe compression fracture of T12 with retropulsion of bone into the canal and mild spinal stenosis and subtle cord compression. 2. Note that there is a separate report for MRI lumbar spine that was performed today. ADDENDUM: 10/16/24 1908 THIS REPORT CONTAINS FINDINGS THAT MAY BE CRITICAL TO PATIENT CARE. The findings were verbally communicated via telephone conference with Dr. Morejon at 7:06 PM CDT on 10/16/2024. The findings were acknowledged and understood. Laboratory Results WBC 6.13 10^3/uL (3.29-11.43) 10/15/24 10:36 RBC 4.74 10^6/uL (3.85-5.65) 10/15/24 10:36 Hgb 14.40 g/dL (11.27-16.99) 10/15/24 10:36 Hct 43.3 % (36-47) 10/15/24 10:36 MCV 91.4 fl (85-98) 10/15/24 10:36 MCH 30.4 pg (27-33) 10/15/24 10:36 MCHC 33.3 g/dL (30-55) 10/15/24 10:36 RDW 14.5 % (12.1-15.1) 10/15/24 10:36 Plt Count 271 10^3/cmm (157-399) 10/15/24 10:36 MPV 8.2 fL (7.4-10.4) 10/15/24 10:36 Neut % (Auto) 77.4 % 10/15/24 10:36 Lymph % (Auto) 13.5 % 10/15/24 10:36 Rice % (Auto) 7.3 % 10/15/24 10:36 Eos % (Auto) 0.3 % 10/15/24 10:36 Baso % (Auto) 0.8 % 10/15/24 10:36 Neut # (Auto) 4.74 10^3/uL (1.8-7.7) 10/15/24 10:36 Lymph # (Auto) 0.8 10^3/uL (0.8-4.8) 10/15/24 10:36 Rice # (Auto) 0.5 10^3/uL (0.2-0.9) 10/15/24 10:36 Eos # (Auto) 0.0 10^3/uL (0.0-0.8) 10/15/24 10:36 Baso # (Auto) 0.1 10^3/uL (0.0-0.1) 10/15/24 10:36 Nucleated RBC % (auto) 0 % 10/15/24 10:36 Nucleated RBCs # 0.0 /100WBC 10/15/24 10:36 Sodium 134 mmol/L (136-145) L 10/18/24 02:55 Potassium 4.3 mmol/L (3.5-5.1) 10/18/24 02:55 Chloride 98 mmol/L (98-107) 10/18/24 02:55 Carbon Dioxide 27 mmol/L (22-29) 10/18/24 02:55 Anion Gap 13.3 (5-19) 10/18/24 02:55 BUN 18 mg/dL (8-23) 10/18/24 02:55 Creatinine 0.6 mg/dL (0.5-0.9) 10/18/24 02:55 GFR Calculation Not Reportable 10/18/24 02:55 Glucose 94 mg/dL (65-115) 10/18/24 02:55 Calculated Osmolality 280 mOsm/kg (285-295) L 10/18/24 02:55 Calcium 8.1 mg/dL (8.5-10.5) L 10/18/24 02:55 Magnesium 2.1 mg/dL (1.7-2.3) 10/16/24 05:00 Total Bilirubin 0.7 mg/dL (0.15-1.2) 10/15/24 10:36 AST 44 U/L (0-32) H 10/15/24 10:36 ALT 23 U/L (0-33) 10/15/24 10:36 Alkaline Phosphatase 113 U/L (35-105) H 10/15/24 10:36 Troponin T Baseline 31 ng/L (0-10) H 10/15/24 10:36 Troponin T 120 Minute 31.22 ng/L (0-10) H 10/15/24 12:29 Delta Troponin T 0.22 ABS# (0-10) 10/15/24 12:29 Troponin T Hi Sens 6Hr 30.62 ng/L (0-10) H 10/15/24 17:01 Troponin T Hi Sens 6Hr Delta -0.38 ng/L (0-12) L 10/15/24 17:01 C-Reactive Protein 21.3 mg/L (0.0-4.9) H 10/15/24 10:36 NT-Pro-B Natriuret Pep 483 pg/mL (0-450) H 10/15/24 10:36 Total Protein 5.7 g/dL (6.6-8.7) L 10/15/24 10:36 Albumin 3.8 g/dL (3.5-5.2) 10/15/24 10:36 Globulin 1.9 g/dL (1.3-4.6) 10/15/24 10:36 Urine Color Yellow (Yellow) 10/16/24 17:00 Urine Appearance Cloudy (CLEAR) A 10/16/24 17:00 Urine pH 8.0 (5-7) A 10/16/24 17:00 Ur Specific [place] 1.012 (1.005-1.030) 10/16/24 17:00 Urine Protein Negative (Negative) 10/16/24 17:00 Urine Glucose (UA) Negative (Normal) 10/16/24 17:00 Urine Ketones Negative (Negative) 10/16/24 17:00 Urine Blood Negative (Negative) 10/16/24 17:00 Urine Nitrate Negative (Negative) 10/16/24 17:00 Urine Bilirubin Negative (Negative) 10/16/24 17:00 Urine Urobilinogen 1.0 mg/dL (Negative) 10/16/24 17:00 Ur Leukocyte Esterase Negative (Negative) 10/16/24 17:00 Urine RBC 0-2 /hpf (0-2) 10/16/24 17:00 Urine WBC 0-5 /hpf (0-5) 10/16/24 17:00 Ur Squamous Epith Cells 0-5 /hpf (0-5) 10/16/24 17:00 Amorphous Sediment Not Reportable 10/16/24 17:00 Urine Bacteria None seen /hpf (NONE) 10/16/24 17:00 Hyaline Casts 0.40 /lpf 10/16/24 17:00 Vitals Last Vital Signs Temp 97.6 F 10/19/24 11:29 Pulse 66 10/19/24 11:29 Resp 17 10/19/24 11:29 BP 151/84 10/19/24 11:29 Pulse Ox 94 10/19/24 11:29 O2 Del Method Room Air 10/19/24 11:29 Discharge Plan Discharge Patient Disposition: Xfer SNF Condition: Stable Prescriptions: New hydrocodone-acetaminophen 5-325 mg Tablet 1 tab PO Q4H PRN (Reason: Moderate To Severe Pain) Qty: 30 0RF duloxetine 30 mg Capsule,Delayed Release(Dr/Ec) 30 mg PO DAILY Qty: 30 0RF linezolid [Zyvox] 600 mg tablet 600 mg PO BID Qty: 10 0RF cyclobenzaprine 10 mg Tablet 5 mg PO TID PRN (Reason: Muscle Spasms) Qty: 30 0RF hydralazine 25 mg tablet 25 mg PO TID Qty: 90 0RF Continued lisinopril 40 mg tablet 40 mg PO DAILY metoprolol succinate 50 mg tablet extended release 24 hr 50 mg PO DAILY pravastatin 20 mg tablet 20 mg PO DAILY levothyroxine 75 mcg tablet 75 mcg PO QAM Discontinued aspirin [Adult Aspirin Regimen] 81 mg tablet,delayed release (DR/EC) 81 mg PO DAILY Forensic Materials Engineer OK for DC: Hospitalist Discharge Order = DC NOW: Discharge Order (Routine); Ordered 10/18/24 Ordered By: Tru Gomez Referrals: [facility]– [place] [Outside] Magno Rios DO [Physician, Orthopedics] - 10/20/24 12:45 pm Referral Note: To discuss kyphoplasty procedure Mino Richter MD [Primary Care Provider, Family Practice] Discharge Diet: Cardiac and Low Cholesterol Discharge Activity: Use walker/crutches as instructed, Wheelchair as instructed and As per PT/OT instructions Patient Instructions: Hydrocodone/Acetaminophen (By mouth), Cyclobenzaprine (By mouth) (Flexeril, Amrix, Fexmid, FusePaq Tabradol), Hydralazine (By mouth), Linezolid (By mouth), Duloxetine (By mouth), Cellulitis (GEN), Opioid Safety, Patient Portal & Johanny Instructions Discharge Attestations Time Spent in Discharge Care*: less than 30 min Quality Metrics Clinical Quality Measures [ No reported AMI, CVA or VTE this stay] Coding Level of Care Code Acute Code for Chg Fwd Diagnoses Cellulitis L03.90 Bilateral lower extremity edema R60.0 Acute midline low back pain without sciatica M54.50 Back pain location: low back pain Chronicity: acute Back pain laterality: midline Sciatica presence: without sciatica Other closed fracture of twelfth thoracic vertebra with routine healing, subsequent encounter S22.088D Encounter type: subsequent encounter Thoracic vertebra fracture level: T12 Fracture type: closed Fracture morphology: other fracture Fracture healing: with routine healing Other closed fracture of first lumbar vertebra, initial encounter S32.018A Encounter type: initial encounter Lumbar vertebra fracture level: L1 Fracture type: closed Fracture morphology: other fracture
--- NOTE | 2024-10-19 12:11 | PC.NURSE ---
Pooja Baptiste notified that patient will be moved to [facility] today.
--- NOTE | 2024-10-19 13:03 | PC.NURSE ---
attempted to call report to Eris Small. Was informed that nurse had just left for lunch and would call me back when she came back.
--- NOTE | 2024-10-19 13:19 | PC.NURSE ---
Report called to Jessika at [facility]. All questions answered.
[2024-10-19 13:56] VITALS: RESP 16
[2024-10-19] MEDS: oxyCODONE-APAP 10-325 mg Tablet 1 TAB PO (13:56)
[2024-10-19 15:48] VITALS: BP 178/98; PULSE 69; RESP 16; TEMP 36.4; O2SAT 92
[2024-10-19 16:08] VITALS: BP 151/84; PULSE 69; RESP 16; TEMP 36.4; O2SAT 92
== END 2024-10-19 16:00 | disposition skilled nursing facility (03) | DRG 603 ==
LOC: ER 12:34 → MEDSURG 15:29
PROVIDERS: Admitting Provider Internal Medicine; Emergency Provider Family Medicine; PCP Family Medicine; Visit Provider Internal Medicine
DX: L03.116 Cellulitis of left lower limb (principal); S32.019A Unspecified fracture of first lumbar vertebra, initial encounter for closed fracture; L03.115 Cellulitis of right lower limb; M47.816 Spondylosis without myelopathy or radiculopathy, lumbar region; M48.061 Spinal stenosis, lumbar region without neurogenic claudication; W01.0XXA Fall on same level from slipping, tripping and stumbling without subsequent striking against object, initial encounter; S22.089D Unspecified fracture of T11-T12 vertebra, subsequent encounter for fracture with routine healing; W01.0XXD Fall on same level from slipping, tripping and stumbling without subsequent striking against object, subsequent encounter; E78.5 Hyperlipidemia, unspecified; E03.9 Hypothyroidism, unspecified; I10 Essential (primary) hypertension; G89.29 Other chronic pain; Z95.5 Presence of coronary angioplasty implant and graft
CPT/HCPCS: 36415; 71045; 72131; 72146; 72148; 80048; 80053; 81001; 83735; 83880; 84484; 85025; 86140; 93005; 93970; 97161; 97530; G0378; J1885; J2060; J2270; J7042; J9999

== ENCOUNTER → 2024-10-20 13:03 | Outpatient (BNVA) | payer MEDICARE, SELFPAY | PROVIDERS: PCP Family Medicine; Visit Provider Orthopaedic Surgery | DX: S32.010D Wedge compression fracture of first lumbar vertebra, subsequent encounter for fracture with routine healing (principal); S22.080D Wedge compression fracture of T11-T12 vertebra, subsequent encounter for fracture with routine healing; X58.XXXD Exposure to other specified factors, subsequent encounter | CPT/HCPCS: 99214 ==

== ENCOUNTER 2024-10-21 08:34 | Day surgery (SDC) | payer MEDICARE, SELFPAY ==
[2024-10-21] VITALS (11 sets, daily range): BP systolic 151–185; BP diastolic 62–100; PULSE 69–79; RESP 16–17; TEMP 36.6–36.9; O2SAT 92–99; BMI 29.4
--- NOTE | 2024-10-21 08:41 | SC_ITS ---
WS: [id number] C-arm fluoroscopy for thoracic and lumbar vertebroplasty, 10/21/2024 Clinical Data: Surgery Comparison: Lumbar spine, 08/13/2024 Findings: Dr. Rios performed vertebroplasty at T12 and L1. SC/C-arm FL for Bronchoscopy Impression: T12 and L1 vertebroplasty.
[2024-10-21] MEDS: fentaNYL 50 mcg/mL INJ 2mL IVP (09:55)
--- NOTE | 2024-10-21 10:08 | W.PM.OPSUD ---
Surgery/Procedure H&P Update DATE OF PROCEDURE: October 21, 2024 DATE H&P PERFORMED: 10/20/24 H&P UPDATE INFORMATION: I have reviewed H&P completed within last 30 days, I have examined patient prior to procedure and No changes to prior documentation PREOP DIAGNOSIS: T12 and L1 compression fractures PLANNED PROCEDURE: Operation Date: 10/21/24 10:15 Proposed Procedures p Thoracic Kyphoplasty(Not Applicable) - Magno Rios DO s Lumbar Kyphoplasty(Not Applicable) - Magno Rios DO
--- NOTE | 2024-10-21 10:23 | ANES.PREANE2 ---
Pre-Anesthetic Assessment Height/Weight: Height 1.57 m Weight 73.028 kg Temp Pulse Resp BP Pulse Ox O2 Del Method 97.9 F 74 17 160/97 93 Room Air 10/21/24 08:54 10/21/24 08:54 10/21/24 09:55 10/21/24 08:54 10/21/24 09:55 10/21/24 09:07 Preop Diagnosis: T12 and L1 compression fractures Operation Date: 10/21/24 10:15 Proposed Procedures p Thoracic Kyphoplasty(Not Applicable) - Magno Rios DO s Lumbar Kyphoplasty(Not Applicable) - Magno Rios DO Was Beta Johnny taken within 24 hours: Yes Was Clonidine taken within 24 hours: N/A Last intake: Intake Last Liquid Date 10/20/24 Last Liquid Time 18:00 Last Solid Date 10/20/24 Last Solid Time 17:30 Social No alcohol and No tobacco Exam alert, oriented x 3, clear to auscultation bilaterally and regular rate & rhythm Airway Submandibular: within normal limits Cervical ROM: within normal limits Mallampati: Class II Dentition: full History/ROS No significant history except as noted and No significant complaints CV/HEM Hypertension None reported Hepatic None reported GI None reported Metabolic Thyroid Disease Musc/skel Osteoarthritis/DJD Neuropsych None reported Anesthetic Plan ASA status: 3 Anesthesia: Anesthesia Evaluation and General Risk of > 500 ml blood loss (7ml/kg in children): No Medications/Allergies Home Medications ?Medication ?Instructions ?Recorded ?Confirmed ?Last Taken ?Type lisinopril 40 mg tablet 40 mg PO DAILY 11/16/19 10/21/24 10/21/24 History metoprolol succinate 50 mg 50 mg PO DAILY 11/16/19 10/21/24 10/21/24 History tablet,extended release 24 hr pravastatin 20 mg tablet 20 mg PO DAILY 11/16/19 10/21/24 10/20/24 History levothyroxine 75 mcg tablet 75 mcg PO QAM 08/10/24 10/21/24 10/21/24 History duloxetine 30 mg capsule,delayed 30 mg PO DAILY #30 caps 10/18/24 10/21/24 10/20/24 Rx release linezolid 600 mg tablet (Zyvox) 600 mg PO BID #10 tabs 10/18/24 10/21/24 10/20/24 Rx cyclobenzaprine 10 mg tablet 5 mg (1/2 x 10 mg) PO TID PRN 10/19/24 10/21/24 Unknown Rx Muscle Spasms #30 tabs hydrocodone 5 mg-acetaminophen 325 1 - 2 tab PO .Q4-6H #40 tabs 10/21/24 Unknown Rx mg tablet Allergies Allergy/AdvReac Type Severity Reaction Status Date / Time amoxicillin Allergy ALGY-Hives Verified 10/21/24 08:50 cephalexin Allergy Unknown Verified 10/21/24 08:50 Current Medications Generic Name Dose Route Start Last Admin Trade Name Freq PRN Reason Stop Dose Admin Fentanyl 50 mcg 10/21/24 08:41 10/21/24 09:55 Fentanyl 50 Mcg/Ml Inj 2ml IVP 50 mcg Q10M PRN Administration Preop Pain Sodium Chloride 1,000 mls @ 30 mls/hr 10/21/24 08:45 10/21/24 09:46 Sodium Chloride 0.9% IV 10/22/24 08:44 30 mls/hr .Q24H ANISH Administration PFSH Anesthesia Medical History Dyslipidemia History of hypothyroidism History of hypertension Surgical History Hx of hysterectomy Hx of eye surgery Hx of heart artery stent x 2 in 2006 Social History Smoking and tobacco/nicotine status: never used tobacco/nicotine
[2024-10-21] MEDS: lidocaine-epi 1% 20 mL INJ INJECTION (11:01)
[2024-10-21] MEDS: iohexol 300 mg/mL 50 mL Btl XX (11:01)
--- NOTE | 2024-10-21 11:37 | PM.OP ---
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 T12 kyphoplasty 2. L1 kyphoplasty Surgeon: Magno Rios DO Estimated blood loss (mL): 5 Procedure: 1. T12 kyphoplasty 2. L1 kyphoplasty Patient is brought to the operative suite after undergoing anesthesia placed in the prone position. All areas impingement were well-padded. Patient's prepped and draped normal sterile fashion. Skin incision was made over the L1 pedicle on the left. Awl was inserted. Biopsy was taken. And then balloon was inflated. Then deflated. Next attention was brought to the T12 level. Again skin this was made over the left pedicle. Awl was inserted. Followed by the drill. Balloon was not used on this level because the space was so narrow. At this point cement was then injected into the L1 level followed on biplanar fluoroscopy to make sure was appropriate position. This process was repeated T12. AP lateral fluoroscopy ensured the cement and fracture in good position. Wounds irrigated closed with nylon suture. Sterile dressings were applied patient is transferred to the PACU in stable condition.
--- NOTE | 2024-10-21 12:35 | ANE.PACU2 ---
Inpatient post-anesthesia follow up: Airway intact: Yes Vital signs: Temperature 97.8 F Pulse Rate 79 Respiratory Rate 17 Blood Pressure 152/100 Pulse Oximetry 92 Oxygen Delivery Me thod Room Air Oxygen Flow Rate 6 Fraction of Inspir ed Oxygen Hydration adequate: Yes Nausea and vomiting: No Pain level: 1 Mental status: Baseline
== END 2024-10-21 12:38 | disposition home or self-care (01) ==
PROVIDERS: PCP Family Medicine; Visit Provider Orthopaedic Surgery
PROC: 0PS43ZZ Reposition Thoracic Vertebra, Percutaneous Approach (ICD-10-PCS; CPT 22513; principal; 2024-10-21 10:15)
PROC: 0QS03ZZ Reposition Lumbar Vertebra, Percutaneous Approach (ICD-10-PCS; CPT 22514; 2024-10-21 10:15)
DX: S22.080A Wedge compression fracture of T11-T12 vertebra, initial encounter for closed fracture (principal); S32.010A Wedge compression fracture of first lumbar vertebra, initial encounter for closed fracture; X58.XXXA Exposure to other specified factors, initial encounter; I10 Essential (primary) hypertension; E03.9 Hypothyroidism, unspecified; E78.5 Hyperlipidemia, unspecified
CPT/HCPCS: 22513; 76000; 88307; 88311; A4216; J1100; J2371; J2405; J2704; J3010; J3490; J7030; J9999

== ENCOUNTER → 2024-11-05 13:25 | Outpatient (BNVA) | payer MEDICARE, SELFPAY | PROVIDERS: PCP Family Medicine; Visit Provider Orthopaedic Surgery | DX: Z98.890 Other specified postprocedural states (principal) | CPT/HCPCS: 99024 ==